=== PATIENT | female | born 1970 | race Caucasian/White ===

== ENCOUNTER 2021-09-13 19:55 | Observation (INO) | payer BC ==
--- OUTSIDE RECORDS SUMMARY | 2021-09-13 19:58 | XMS REPORT | Continuity of Care Document ---
:1970 Author Organization [facility] t Address [address] [place] [address] Care Team Providers Name Role Phone PCP, PATIENT DOES NOT HAVE A Primary Care Physician Unavaila ROLAND Joel Attending Clinician Unavailable Doctor Unassigned, [place] Attending Clinician Unavailable LYLY PHAM Attending Clinician Unavailable Only, Ang Db Test Attending Clinician Unavailable EbLyly Marroquin Attending Clinician CLARICE SILVER Attending Clinician Unavailable Caitlin Brady RN Attending Clinician Unavailable UNKNOWN, ATTENDING Attending Clinician Unavailable Clarice Urias MD Attending Clinician [phone] John Burdick MD Attending Clinician Payers Payer Name Policy Type Policy Number Effective Date Expiration Date S marquis BLUE [employer]ENTIALS [id number] 2019 HMO 00:00:00 OUT OF [facility] [id number] 2020 - O - BS 00:00:00 OPEN ACCESS [id number] HMO/POS/EPO/PPO - [employer]ET[employer] Problems Condition Condition Condition Status Onset Resolution Last Treating Co mments Source Name Details Category Date Date Treatment Clinician Date Acid Acid Disease Active [facility] reflux reflux 7-05 College 00:00: of 00 Medicin e Ovarian Ovarian Disease Active [facility] cyst cyst 6-24 College 00:00: of 00 Medicin e Breast Breast Disease Active [facility] cancer cancer 3-19 College (HCCode) (HCCode) 00:00: of 00 Medicin e Allergies, Adverse Reactions, Alerts Allergy Allergy Status Severity Reaction(s) Onset Inactive Treating Comm ents Source Name Type Date Date Clinician CODEINE DRUG Active Hives Univers INGREDI 3-20 ity of 00:00: [address] Avocado Propensi Active Nausea And [facility] ty to Vomiting 4-20 College adverse 00:00: of reaction 00 Medicin s to e drug Codeine Propensi Active Hives [facility] ty to 7-17 College adverse 00:00: of reaction 00 Medicin s to e drug Codeine Propensi Active Hives. [facility] Phosphat ty to 3-15 College e adverse 00:00: of reaction 00 Medicin s to e drug NO KNOWN Drug Active Univers ALLERGIE Class ity of S [facility] Social History Social Habit Start Date Stop Date Quantity Comments Source History [facility] ge of Alcohol Frequency Medicin e History [facility] ge of Alcohol Std Drinks Medici ne History [facility] ge of Alcohol Binge Medicine History of tobacco Cigarette Smoker [facility] of use Medicine Exposure to Not sure University of SARS-CoV-2 (event) [facility] Alcohol intake 2020-12-22 2020-12-22 .86 /d [facility] Col lege of 00:00:00 00:00:00 Medicine Alcohol Comment 2015-01-24 2015-01-24 Social drinking [facility] of 00:00:00 00:00:00 Medicine Tobacco Comment 2015-01-24 2015-01-24 5 cigarettes a [facility] 00:00:00 00:00:00 day. Medicine Tobacco use and 2012-09-25 2012-09-25 Smokeless tobacco [facility] of exposure 00:00:00 00:00:00 non-user Medicine Cigarettes smoked 2012-09-25 2012-09-25 [facility] current (pack per 00:00:00 00:00:00 Medicin e day) - Reported Sex Assigned At [birth year] [facility] y of 00:00:00 00:00:00 [facility] Smoking Status Start Date Stop Date Source Unknown if ever smoked [facility] Ex-smoker 2012-09-25 00:00:00 2012-09-25 00:00:00 [facility] nahid of Medicine Medications Ordered Filled Start Stop Current Ordering Indication Dosage Frequency Signature Comments Components Source Medication Medication Date Date Medication? Clinician (SIG) Name Name Ascorbic 2020-02 Yes [id number] Take by [facility] Acid -12 mouth. [place] (VITAMIN C 13:21: of OR) 34 Medicin e CALCIUM-VIT 2020-02 Yes [id number] Take by [facility] FRANKS D OR -12 mouth. [place] 13:21: of 34 Medicin e citalopram 2020-02 Yes 20mg Take 20 mg [facility] (CELEXA) 20 12 by mouth [facility] MG tablet 13:21: daily. of 34 Medicin e estradiol 2020-[address] 2 g [facility] (ESTRACE) 02-21 vaginally Colle ge 0.1 MG/GM 00:00: daily. of vaginal 00 Medicin cream e montelukast Yes [facility] (SINGULAIR) 8- [place] 10 MG 00:00: of tablet 00 Medicin e Ascorbic Yes [id number] Take by ylor Acid -07 mouth. [place] (VITAMIN C 13:45: of OR) 34 Medicin e CALCIUM-VIT Yes [id number] Take by [facility] FRANKS D OR -07 mouth. [place] 13:45: of 34 Medicin e citalopram Yes 20mg Take 20 mg [facility] (CELEXA) 20 -07 by mouth [facility] MG tablet 13:45: daily. of 34 Medicin e tamoxifen Yes 10mg Take 1 [facility] (NOLVADEX) 5-07 Tablet by [facility] 10 MG 00:00: mouth of tablet 00 daily. Medicin e tamoxifen Yes 10mg Take 1 [facility] (NOLVADEX) 5-07 Tablet by [facility] 10 MG 00:00: mouth of tablet 00 daily. Medicin e tamoxifen Yes TAKE 1 [facility] (NOLVADEX) 3-03 TABLET BY [facility] 20 MG 00:00: MOUTH of tablet 00 EVERY DAY Medicin e tamoxifen Yes TAKE 1 [facility] (NOLVADEX) 3-03 TABLET BY [facility] 20 MG 00:00: MOUTH of tablet 00 EVERY DAY Medicin e levothyroxi 0 2020- No 137ug Take 137 [facility] ne 1-11 01-11 mcg by [place] (SYNTHROID) 17:42: 00:00 mouth of 137 MCG 48 :00 daily. Medicin tablet e levothyroxi 2020-0 Yes 137ug Take 137 [facility] ne 1-11 mcg by [place] (SYNTHROID) 00:00: mouth of 137 MCG 00 daily. Medicin tablet e levothyroxi 2020-0 Yes 137ug Take 137 [facility] ne 1-11 mcg by [place] (SYNTHROID) 00:00: mouth of 137 MCG 00 daily. Medicin tablet e Ascorbic 2020-0 Yes [id number] Take by [facility] Acid 1-08 mouth. [place] (VITAMIN C 16:10: of OR) 43 Medicin e CALCIUM-VIT 2020-0 Yes [id number] Take by [facility] FRANKS D OR 1-08 mouth. [place] 16:10: of 43 Medicin e citalopram 2020-0 Yes 20mg Take 20 mg [facility] (CELEXA) 20 1-08 by mouth [facility] MG tablet 16:10: daily. of 43 Medicin e levothyroxi 2020-0 Yes 137ug Take 137 [facility] ne 1-05 mcg by [place] (SYNTHROID) 16:44: mouth of 137 MCG 42 daily. Medicin tablet e Ascorbic 2020-0 Yes [id number] Take by [facility] Acid 1-05 mouth. [place] (VITAMIN C 16:44: of OR) 42 Medicin e CALCIUM-VIT 2020-0 Yes [id number] Take by [facility] FRANKS D OR 1-05 mouth. [place] 16:44: of 42 Medicin e citalopram 2020-0 Yes 20mg Take 20 mg [facility] (CELEXA) 20 1-05 by mouth [facility] MG tablet 16:44: daily. of 42 Medicin e Montelukast 2020-0 2020- No Take by [facility] Sodium 1-05 01-05 mouth. [place] (SINGULAIR 16:44: 00:00 of OR) 34 :00 Medicin e linaCLOtide 2020-0 Yes [facility] (LINZESS) 6-30 [place] 145 MCG 00:00: of CAPS 00 Medicin e linaCLOtide 2020-0 Yes [facility] (LINZESS) 6-30 [place] 145 MCG 00:00: of CAPS 00 Medicin e linaCLOtide 2020-0 Yes [facility] (LINZESS) 6-30 [place] 145 MCG 00:00: of CAPS 00 Medicin e linaCLOtide 2020-0 Yes [facility] (LINZESS) 6-30 [place] 145 MCG 00:00: of CAPS 00 Medicin e tamoxifen 2019-0 Yes 20mg Take 1 Tab [facility] (NOLVADEX) 3-23 by mouth Colle ge 20 MG 00:00: daily. of tablet 00 Medicin e tamoxifen 2019-0 Yes 20mg Take 1 Tab [facility] (NOLVADEX) 3-23 by mouth [facility]le [facility] 20 MG 00:00: daily. of tablet 00 Medicin e citalopram 2018-02 Yes 20mg Take 20 mg [facility] (CELEXA) 20 0-25 by mouth [facility] MG tablet 14:51: daily. of 33 Medicin e levothyroxi 2018-02 Yes 137ug Take 137 [facility] ne 0-25 mcg by [place] (SYNTHROID) 14:51: mouth of 137 MCG 33 daily. Medicin tablet e Montelukast 2018-02 Yes Take by [facility] Sodium 0-25 mouth. [place] (SINGULAIR 14:51: of OR) 33 Medicin e Icosapent 2018-02 Yes Take by [facility] Ethyl 0-25 mouth. [place] (VASCEPA) 1 14:51: of G [facility] 33 Medicin e Polyethylen 2018-02 Yes [id number] Take by [facility] e Glycol 0-25 mouth. [place] 3350 14:51: of (MIRALAX 33 Medicin OR) e Ascorbic 2018-02 Yes [id number] Take by ylor Acid 0-25 mouth. [place] (VITAMIN C 14:51: of OR) 33 Medicin e CALCIUM-VIT 2018-02 Yes [id number] Take by [facility] FRANKS D OR 0-25 mouth. [place] 14:51: of 33 Medicin e tamoxifen Yes 20mg Take 1 Tab [facility] (NOLVADEX) 3-08 by mouth Colle ge 20 MG 00:00: daily. of tablet 00 Medicin e clonidine Yes TAKE 1 [facility] (CATAPRES) 9-13 TABLET BY [facility] 0.1 MG 00:00: MOUTH of tablet 00 TWICE A Medicin DAY e azithromyci 2017- 2019- No 250mg Take 1 Tab [facility] n 9-11 10-25 by mouth [place] (ZITHROMAX) 00:00: 00:00 daily. of 250 MG 00 :00 Take 2 Medicin tablet tabs day e 1, 1 tab days 2-5 alendronate 2017-0 2019- No TAKE 1 [facility] (FOSAMAX) 7- 10-25 TABLET BY [facility] 70 MG 00:00: 00:00 MOUTH of tablet 00 :00 EVERY 7 Medicin DAYS e ropinirole Yes [facility] (REQUIP) 2 6-01 College MG tablet 00:00: of 00 Medicin e Elastic 2015-02 Yes 1U 1 Units at [facility] Bandages & 0-03 bedtime. [facility]le [facility] Supports 00:00: of (WRIST 00 Medicin SPLINT/COCK e -UP/RIGHT M) MISC alprazolam 2012-02 Yes .25mg Take 1 Tab [facility] (XANAX) 1-15 by mouth College 0.25 MG 00:00: nightly as of tablet 00 needed. Medicin e alprazolam 2012-02 Yes .25mg Take 1 Tab [facility] (XANAX) 1-15 by mouth College 0.25 MG 00:00: nightly as of tablet 00 needed. Medicin e alprazolam 2012-02 Yes .25mg Take 1 Tab [facility] (XANAX) 1-15 by mouth College 0.25 MG 00:00: nightly as of tablet 00 needed. Medicin e alprazolam 2012-02 Yes .25mg Take 1 Tab [facility] (XANAX) 1-15 by mouth College 0.25 MG 00:00: nightly as of tablet 00 needed. Medicin e alprazolam 2012-02 Yes .25mg Take 1 Tab [facility] (XANAX) 1-15 by mouth College 0.25 MG 00:00: nightly as of tablet 00 needed. Medicin e Immunizations Ordered Immunization Filled Immunization Date Status Commen ts Source Name Name Influenza 2016-01-26 Completed [facility] Intradermal 00:00:00 of Medicine Influenza 2016-01-26 Completed [facility] Intradermal 00:00:00 of Medicine Influenza 2016-01-26 Completed [facility] Intradermal 00:00:00 of Medicine Influenza 2016-01-26 Completed [facility] Intradermal 00:00:00 of Medicine Influenza 2016-01-26 Completed [facility] Intradermal 00:00:00 of Medicine Influenza (whole) 2012-12-23 Completed [facility] 00:00:00 of Medicine Influenza (whole) 2012-12-23 Completed [facility] 00:00:00 of Medicine Influenza (whole) 2012-12-23 Completed [facility] 00:00:00 of Medicine Influenza (whole) 2012-12-23 Completed [facility] 00:00:00 of Medicine Influenza (whole) 2012-12-23 Completed [facility] 00:00:00 of Medicine Vital Signs Vital Name Observation Time Observation Value Comments Source Systolic blood 2020-12-22 19:20:00 128 mm[Hg] [facility] Medicine Diastolic blood 2020-12-22 19:20:00 82 mm[Hg] Health system Medicine Heart rate 2020-12-22 19:20:00 74 /min [facility] ollege of Medicine Body height 2020-12-22 19:20:00 165.1 cm [facility] ollege of [facility] Body weight 2020-12-22 19:20:00 82.101 kg [facility] ollege of [facility] BMI 2020-12-22 19:20:00 30.12 kg/m2 [facility] ollege of Medicine Systolic blood 2020-06-16 18:44:00 121 mm[Hg] [facility] Medicine Diastolic blood 2020-06-16 18:44:00 76 mm[Hg] Health system Medicine Heart rate 2020-06-16 18:44:00 79 /min [facility] ollege of Medicine Body temperature 2020-06-16 18:44:00 36.22 [facility] Body height 2020-06-16 18:44:00 167.6 cm [facility] ollege of [facility] Body weight 2020-06-16 18:44:00 81.285 kg [facility] ollege of Medicine BMI 2020-06-16 18:44:00 28.92 kg/m2 [facility] ollege of Medicine Systolic blood 2020-02-18 16:08:00 116 mm[Hg] [facility] Medicine Diastolic blood 2020-02-18 16:08:00 78 mm[Hg] Health system Medicine Heart rate 2020-02-18 16:08:00 71 /min [facility] ollege of Medicine Respiratory rate 2020-02-18 16:08:00 16 /min [facility] Body height 2020-02-18 16:08:00 167.6 cm [facility] Body weight 2020-02-18 16:08:00 83.008 kg [facility] BMI 2020-02-18 16:08:00 29.54 kg/m2 [facility] Oxygen saturation in 2020-02-18 16:08:00 99 /min [facility] Arterial blood by [facility] Pulse oximetry Systolic blood 2020-02-15 16:47:00 111 mm[Hg] [facility] pressure Medicine Diastolic blood 2020-02-15 16:47:00 74 mm[Hg] Health system Medicine Heart rate 2020-02-15 16:47:00 77 /min [facility] Body temperature 2020-02-15 16:47:00 36.11 [facility] Body height 2020-02-15 16:47:00 167.6 cm [facility] Body weight 2020-02-15 16:47:00 82.555 kg [facility] BMI 2020-02-15 16:47:00 29.38 kg/m2 [facility] Systolic blood 2018-12-04 14:49:00 134 mm[Hg] [facility] pressure Medicine Diastolic blood 2018-12-04 14:49:00 85 mm[Hg] Health system Medicine Heart rate 2018-12-04 14:49:00 64 /min [facility] Body temperature 2018-12-04 14:49:00 37.06 [facility] Body height 2018-12-04 14:49:00 167.6 cm [facility] Body weight 2018-12-04 14:49:00 78.019 kg [facility] BMI 2018-12-04 14:49:00 27.76 kg/m2 [facility] Procedures Procedure Date / Time Performing Clinician Source Performed NO SHOW OR MISSED 2021-04-29 17:07:57 Doctor Unassigned, [facility] APPOINTMENT POLICY [facility] ACKNOWLEDGEMENT HEPATIC FUNCTION PANEL 2020-12-22 13:55:02 [facility] TSH 2020-12-22 13:55:02 [facility] 2020-12-22 13:49:35 [facility] HEPATIC FUNCTION PANEL 2020-12-22 13:44:15 [facility] ASSIGNMENT OF BENEFITS 2020-09-30 19:01:04 [facility] ELECTROCARDIOGRAM COMPLETE 2020-02-18 16:10:00 John Burdick [facility] Plan of Care Planned Activity Planned Date Details Comments Source Future Scheduled 2020-12-22 Screening for malignant [facility] Test 14:34:19 neoplasm of colon of Medicin e (procedure) [code = 351217283] Future Scheduled 2020-12-22 COVID-19 Vaccine (1) [facility] Test 14:34:19 [code = COVID-19 of Medicine Vaccine (1)] Future Scheduled 2020-12-22 TETANUS SHOT (ADULT) [facility] Test 14:34:19 [code = TETANUS SHOT of Medi cine (ADULT)] Future Scheduled 2020-12-22 BMI FOLLOW UP PLAN [facility] Test 14:34:19 [code = BMI FOLLOW UP of Med icine PLAN] Future Scheduled 2020-12-22 Hepatitis C screening [facility] Test 14:34:19 (procedure) [code = of Medic ine 794539479] Future Scheduled 2020-12-22 Human immunodeficiency B [facility] Test 14:34:19 virus screening of Medicine (procedure) [code = 176260915] Future Scheduled 2020-12-22 Screening for malignant [facility] Test 14:34:19 neoplasm of cervix of Medici ne (procedure) [code = 678382843] Future Scheduled 2020-12-22 Screening for malignant [facility] Test 14:34:19 neoplasm of breast of Medici ne (procedure) [code = 537268175] Future Scheduled 2020-12-22 ZOSTER VACCINE (1 of 2) [facility] Test 14:34:19 [code = ZOSTER VACCINE of Me dicine (1 of 2)] Future Scheduled 2020-12-22 FLU VACCINE > 6 MONTHS B [facility] College Test 14:34:19 [code = FLU VACCINE > 6 of M edicine MONTHS] Future Scheduled 2020-12-22 DEXA BONE DENSITY SPINE 1 Occurrences [facility] College Test 13:56:14 AND HIP [code = 75879] starting of Me dicine 12/22/2020 until 12/22/2021 Future Scheduled 2020-12-22 HEPATIC FUNCTION PANEL Ordered: [facility] Test 13:55:02 [code = 52832-7] 12/22/2020 of Medicine Future Scheduled 2020-12-22 TSH [code = 99487-6] Ordered: [facility] Test 13:55:02 12/22/2020 of Medicine Future Scheduled 2020-12-22 DEXA BONE DENSITY SPINE 1 Occurrences [facility] College Test 13:50:41 AND HIP [code = 65615] starting of Me dicine 12/22/2020 until 12/22/2021 Future Scheduled 2020-12-22 TSH [code = 84570-2] Ordered: [facility] [employer] Test 13:49:35 12/22/2020 of Medicine Future Scheduled 2020-12-22 HEPATIC FUNCTION PANEL Ordered: [facility] [employer] Test 13:44:15 [code = 78251-9] 12/22/2020 of Medicine Future Scheduled 2020-06-20 Screening for malignant [facility] College Test 18:03:45 neoplasm of colon of Medicin e (procedure) [code = 706770884] Future Scheduled 2020-06-20 TETANUS SHOT (ADULT) [facility] Test 18:03:45 [code = TETANUS SHOT of Medi cine (ADULT)] Future Scheduled 2020-06-20 COVID-19 Vaccine (1) [facility] Test 18:03:45 [code = COVID-19 of Medicine Vaccine (1)] Future Scheduled 2020-06-20 BMI FOLLOW UP PLAN [employer] [employer] Test 18:03:45 [code = BMI FOLLOW UP of Med icine PLAN] Future Scheduled 2020-06-20 Hepatitis C screening [facility] Test 18:03:45 (procedure) [code = of Medic ine 748736694] Future Scheduled 2020-06-20 Human immunodeficiency [facility] Test 18:03:45 virus screening of Medicine (procedure) [code = 845929638] Future Scheduled 2020-06-20 Screening for malignant [facility] College Test 18:03:45 neoplasm of cervix of Medici ne (procedure) [code = 453514524] Future Scheduled 2020-06-20 Screening for malignant [facility] Test 18:03:45 neoplasm of breast of Medici ne (procedure) [code = 661734514] Future Scheduled 2020-06-20 ZOSTER VACCINE (1 of 2) [facility] Test 18:03:45 [code = ZOSTER VACCINE of Me dicine (1 of 2)] Future Scheduled 2020-06-20 FLU VACCINE > 6 MONTHS B [facility] Test 18:03:45 [code = FLU VACCINE > 6 of M edicine MONTHS] Future Scheduled 2020-06-16 HEPATIC FUNCTION PANEL Ordered: [facility] Test 14:06:09 [code = 77666-5] 06/16/2020 of Medicine Future Scheduled 2020-06-16 DEXA BONE DENSITY SPINE 1 Occurrences [facility] Test 14:06:09 AND HIP [code = 53755] starting of Me dicine 06/16/2020 until 06/16/2021 Diagnostic Test 2020-02-18 ECHO,CARDIOLOGY Expected: [facility] [employer] Pending 00:00:00 ONCOLOGY [code = 02/18/2020, of Medicine 24461-2] Expires: 02/17/2021 Diagnostic Test 2020-02-15 NM BONE SCAN WHOLE BODY Expected: [facility] Pending 00:00:00 [code = 55167-1] 02/15/2020, Medicine Expires: 08/14/2021 Diagnostic Test 2020-02-15 CT ABDOMEN PELVIS W Expected: [facility] Pending 00:00:00 CONTRAST [code = 02/15/2020, Medicine 06008-9] Expires: 09/14/2020 Diagnostic Test 2020-02-15 CT CHEST W CONTRAST Expected: [facility] Pending 00:00:00 [code = 99085-7] 02/15/2020, of Medicine Expires: 09/14/2020 Diagnostic Test 2020-02-15 CBC W/AUTO DIFF WITH Expected: [facility] Pending 00:00:00 PLATELETS [code = 02/15/2020, of Medicin e 78308-0] Expires: 08/14/2020 Diagnostic Test 2020-02-15 COMPREHENSIVE METABOLIC Expected: [facility] Pending 00:00:00 PANEL [code = 26766-5] 02/15/2020, of Me dicine Expires: 08/14/2020 Diagnostic Test 2020-02-15 TSH [code = 02489-5] Expected: [facility] [employer] Pending 00:00:00 02/15/2020, of Medicine Expires: 08/14/2020 Diagnostic Test 2020-02-15 HEMOGLOBIN A1C [code = Expected: [facility] Pending 00:00:00 4548-4] 02/15/2020, of Medicine Expires: 08/14/2020 Future Scheduled ELECTROCARDIOGRAM [facility] Test COMPLETE [code = 23003] of M edicine Future Scheduled COLON CANCER SCREENING: [facility] Test COLONOSCOPY [code = of Medic ine COLON CANCER SCREENING: COLONOSCOPY] Future Scheduled COVID-19 Vaccine [facility] Test Evaluation [code = of Medici ne COVID-19 Vaccine Evaluation] Future Scheduled TETANUS SHOT (ADULT) [facility] [employer] Test [code = TETANUS SHOT of Medi cine (ADULT)] Future Scheduled BMI FOLLOW UP PLAN [employer] Test [code = BMI FOLLOW UP of Med icine PLAN] Future Scheduled HEPATITIS C SCREENING [facility] [employer] Test [code = HEPATITIS C of Medic ine SCREENING] Future Scheduled HIV SCREENING [code = [facility] Test HIV SCREENING] of Medicine Future Scheduled CERVICAL CANCER [facility] C ollege Test SCREENING 3 YEAR FOLLOW of M edicine UP [code = CERVICAL CANCER SCREENING 3 YEAR FOLLOW UP] Future Scheduled MAMMOGRAM ANNUAL [code [facility] [facility] [facility] [employer] Test = MAMMOGRAM ANNUAL] of Medic ine Future Scheduled ZOSTER VACCINE (1 of 2) [facility] Test [code = ZOSTER VACCINE of Me dicine (1 of 2)] Future Scheduled FLU VACCINE > 6 MONTHS [facility] Test [code = FLU VACCINE > 6 of M edicine MONTHS] Future Scheduled HEPATIC FUNCTION PANEL Ordered: [facility] Test [code = 93760-0] 12/04/2018 of Medicine Future Scheduled TETANUS SHOT (ADULT) [facility] Test [code = TETANUS SHOT of Medi cine (ADULT)] Future Scheduled BMI FOLLOW UP PLAN [employer] Test [code = BMI FOLLOW UP of Med icine PLAN] Future Scheduled HIV SCREENING [code = [facility] Test HIV SCREENING] of Medicine Future Scheduled CERVICAL CANCER [facility] C ollege Test SCREENING 3 YEAR FOLLOW of M edicine UP [code = CERVICAL CANCER SCREENING 3 YEAR FOLLOW UP] Future Scheduled MAMMOGRAM ANNUAL [code [facility] Test = MAMMOGRAM ANNUAL] of Medic ine Future Scheduled FLU VACCINE > 6 MONTHS [facility] Test [code = FLU VACCINE > 6 of M edicine MONTHS] Future Scheduled COLON CANCER SCREENING: [facility] Test COLONOSCOPY [code = of Medic ine COLON CANCER SCREENING: COLONOSCOPY] Future Scheduled COVID-19 Vaccine [facility] Test Evaluation [code = of Medici ne COVID-19 Vaccine Evaluation] Future Scheduled TETANUS SHOT (ADULT) [facility] [employer] Test [code = TETANUS SHOT of Medi cine (ADULT)] Future Scheduled BMI FOLLOW UP PLAN [employer] Test [code = BMI FOLLOW UP of Med icine PLAN] Future Scheduled HEPATITIS C SCREENING [facility] [employer] Test [code = HEPATITIS C of Medic ine SCREENING] Future Scheduled HIV SCREENING [code = [facility] [employer] Test HIV SCREENING] of Medicine Future Scheduled CERVICAL CANCER [facility] C ollege Test SCREENING 3 YEAR FOLLOW of M edicine UP [code = CERVICAL CANCER SCREENING 3 YEAR FOLLOW UP] Future Scheduled MAMMOGRAM ANNUAL [code [facility] [facility] [facility] [employer] Test = MAMMOGRAM ANNUAL] of Medic ine Future Scheduled ZOSTER VACCINE (1 of 2) [facility] Test [code = ZOSTER VACCINE of Me dicine (1 of 2)] Future Scheduled FLU VACCINE > 6 MONTHS [facility] [employer] Test [code = FLU VACCINE > 6 of M edicine MONTHS] Future Scheduled DEXA BONE DENSITY AXIAL 1 Occurrences [facility] Test SKELETON [code = 71533] starting of M edicine 12/04/2018 until 06/04/2020 Future Scheduled DEXA BONE DENSITY SPINE 1 Occurrences [facility] Test AND HIP [code = [place] [address]] 12/04/2018 until 12/05/2019 Encounters Start End Encounter Admission Attending Care Care Encounter Source Date/Time Date/Time Type Type Clinicians Facility Department ID 2021-04-29 2021-04-29 Outpatient R UMER [facility] [id number] Univers 12:20:00 13:06:36 ROLAND [facility] 2021-04-29 2021-04-29 Outpatient R [facility] [id number] Univers 12:20:00 12:20:00 [id number] [facility] 2021-04-29 2021-04-29 Orders Doctor COOK [id number] Univers 00:00:00 00:00:00 Only Unassigned, RAFIQ 350.1.13.10 ity of [facility] 4.2.7.2.686 All as [id number] [facility] [address] Branch 2021-02-15 2021-02-15 Outpatient R ANKIT, [facility] [id number] Univers 14:30:00 14:45:43 RANIA ity of [facility] 2021-02-15 2021-02-15 Laboratory Only, Ang Db Test [facility] 1.2.8 40.114 [id number] Univers 14:30:00 14:45:00 Only Lyly Pham [facility] 350.1.13.10 ity of [place] [id number] All as KATIE?BLEA [phone] N[place] tripp [address] MEDICAL OFFICE [facility]ILDING 2021-02-15 2021-02-15 Outpatient R [facility] [id number] Univers 14:30:00 14:30:00 [id number] [facility] 2020-12-22 2020-12-22 Office VENKAT SILVERDarnell [id number] [facility] 12:50:09 15:24:50 Visit CLARICE York 350.1.13.21 Co llege 0.2.7.2.686 of [phone] [facility] 500 e 2020-10-01 2020-10-01 Telephone JOYCE Brady [id number] Univers 00:00:00 00:00:00 Piper R RAFIQ 350.1.13.10 it y of HOSPITAL 4.2.7.2.686 All as [phone] [facility] 019 Branch 2020-09-30 2020-09-30 Outpatient R UNKNOWN, [facility] [id number] Univers 14:15:00 14:15:00 ATTENDING ity [facility] 2020-09-30 2020-09-30 Letter Doctor JOYCE [id number] Univers 00:00:00 00:00:00 (Out) Unassigned, RAFIQ 350.1.13.10 ity of [facility] 4.2.7.2.686 All as [id number] [facility] 0[address] 2020-09-30 2020-09-30 Orders Doctor JOYCE 1.2.840.[id number] [place] [address] 00:00:00 00:00:00 Only Unassigned, RAFIQ 350.1.13.10 ity of [facility] 4.2.7.2.686 All as [id number] [facility] [address] 2020-06-16 2020-06-16 [facility] 1.2.840.114 [id number] [facility] 13:37:36 14:56:07 Visit Jaylen Silver 350.1.13.21 C nahid Dejesusam 0.2.7.2.686 of [phone] [facility]i at[facility] 500 e 2020-02-18 2020-02-18 Office CARINE Burdick 1.2.840.[id number] [place] [address] 10:00:32 12:13:49 Visit John AMBULATOR 350.1.13.21 College Y 0.2.7.2.686 of [id number] Medi atif 375 e 2020-02-15 2020-02-15 [facility] 1.2.840.114 [id number] [facility] 10:12:53 14:04:14 Visit Jaylen Silver 350.1.13.21 C nahid Dejesusam 0.2.7.2.686 of [phone] Medi atif 500 e 2018-12-04 2018-12-04 [facility] 1.2.840.114 [id number] [facility] 09:18:29 09:38:29 Visit Jaylen Silver 350.1.13.21 C nahid Dejesusam 0.2.7.2.686 of [phone] Medi atif 500 e Results This patient has no known results.
[2021-09-13 20:56] LABS: Absolute Lymphocytes (CBC) 3.1 K/uL (0.7-4.9); MCV 89.8 fL (80-100); MPV 8.4 fL (7.6-11.3); RBC Red Blood Cell Count 4.23 M/uL (3.86-4.86)
[2021-09-13 21:02] LABS: Protime INR 0.91
[2021-09-13] MEDS ORDERED: ONDANSETRON 4 MG/2 ML VIAL ONE (21:02)
[2021-09-13] MEDS ORDERED: MORPHINE 4 MG/ML SYR ONE (21:02)
[2021-09-13] MEDS ORDERED: ASPIRIN 81 MG CHEWABLE TABLET ONE (21:02)
[2021-09-13 21:06] LABS: SARS-CoV-2 Antigen Rapid Res Negative (Negative)
--- NOTE | 2021-09-13 21:18 | ER ---
Nurse's Notes [facility] Name: Sakshi Franco Age: 51 yrs Sex: Female : 1970 Arrival Date: 09/13/2021 Time: 19:57 Bed 18 Private MD: Diagnosis: Chest pain, unspecified Presentation: 09/13 20:15 Chief complaint: Substernal chest pain and SOB x 1-2 hours. hb 20:15 Coronavirus screen: At this time, the client does not indicate any symptoms associated hb with coronavirus-19. Ebola Screen: No symptoms or risks identified at this time. Initial Sepsis Screen: Does the patient meet any 2 criteria? No. Patient's initial sepsis screen is negative. Does the patient have a suspected source of infection? No. Patient's initial sepsis screen is negative. Risk Assessment: Do you want to hurt yourself or someone else? Patient reports no desire to harm self or others. Onset of symptoms was September 13, 2021. 20:15 Method Of Arrival: Ambulatory hb 20:15 Acuity: TOBY 3 hb Triage Assessment: 20:28 Pain: Complains of pain in xiphoid area, mid-sternal area, left lateral posterior eh3 chest, right lateral posterior chest, left lateral anterior chest and right lateral anterior chest. 20:50 General: Appears distressed, uncomfortable, Behavior is cooperative, appropriate for eh3 age, restless. Neuro: Level of Consciousness is awake, alert, obeys commands, Oriented to person, place, time, situation. Cardiovascular: Capillary refill < 3 seconds Patient's skin is warm and dry. 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 - Social history:: Smoking status: Patient denies any tobacco usage or history of. Smoking status: Patient reports the use of cigarette tobacco products, smokes one-half pack cigarettes per day, Patient uses alcohol, only on a social basis. - Family history:: not pertinent. - Hospitalizations: : No recent hospitalization is reported. Screenin:28 Abuse screen: Denies threats or abuse. Denies injuries from another. Nutritional eh3 screening: No deficits noted. Tuberculosis screening: No symptoms or risk factors identified. Fall Risk None identified. Assessment: 20:28 Also complains of shortness of breath. Reassessment: No changes from previously eh3 documented assessment. See triage assessment. Pain: Pain does not radiate. Pain began 2 hours ago. 21:40 Reassessment: Patient appears in no apparent distress at this time. Patient and/or hb family updated on plan of care and expected duration. Pain level reassessed. Patient is alert, oriented x 3, equal unlabored respirations, skin warm/dry/pink. 22:31 Reassessment: Patient appears in no apparent distress at this time. Patient and/or hb family updated on plan of care and expected duration. Pain level reassessed. Patient is alert, oriented x 3, equal unlabored respirations, skin warm/dry/pink. 09/14 07:35 Reassessment: Patient is alert, oriented x 3, equal unlabored respirations, skin aa5 warm/dry/pink. Vital Signs: 09/13 20:15 BP 141 / 86; Pulse 64; Resp 18; Pulse Ox 100% on R/A; hb 20:28 BP 142 / 84 LA Sitting (auto/reg); Pulse 65; Resp 18; Temp 97.8(TE); Pulse Ox 100% on eh3 R/A; Weight 82.55 kg; Height 5 ft. 5 in. (165.10 cm); Pain 10/10; 21:20 BP 141 / 95; Pulse 60; Resp 18; Pulse Ox 100% on R/A; Pain 1/10; eh3 22:20 BP 124 / 88; Pulse 65; Resp 16; Pulse Ox 98% on R/A; Pain 1/10; eh3 23:20 BP 112 / 85; Pulse 56; Resp 14; Pulse Ox 99% on R/A; Pain 1/10; eh3 09/14 07:30 BP 102 / 62; Pulse 55; Resp 16 S; Pulse Ox 96% on R/A; aa5 09/13 20:28 Body Mass Index 30.29 (82.55 kg, 165.10 cm) 3 ED Course: 09/13 19:57 Patient arrived in ED. ja2 20:09 Anthony Hebert MD is Attending Physician. rn 20:28 Patient has correct armband on for positive identification. Placed in gown. Bed in low eh3 position. Call light in reach. Side rails up X2. Client placed on continuous cardiac and pulse oximetry monitoring. NIBP monitoring applied. Door closed. Noise minimized. Lights dimmed. 20:28 Inserted saline lock: 20 gauge in right antecubital area, using aseptic technique. 3 Blood collected. 20:28 Patient maintains SpO2 saturation greater than 95% on room air. eh3 20:35 Verena Rodgers, RN is Primary Nurse. hb 20:36 Triage completed. hb 20:36 Arm band placed on. hb 20:49 SARS-COV-2 Antigen Rapid Sent. eh3 20:49 Basic Metabolic Panel Sent. eh3 20:49 CBC with Diff Sent. eh3 20:49 D-Dimer Sent. eh3 20:49 LFT's Sent. eh3 20:49 NT PRO-BNP Sent. eh3 20:49 PT-INR Sent. eh3 20:49 Troponin HS Sent. eh3 20:54 XRAY Chest (1 view) In Process Unspecified. EDMS 21:18 Angel Breen MD is Hospitalizing Provider. rn 22:40 CT Chest For PE Angio In Process Unspecified. EDMS 22:59 No provider procedures requiring assistance completed. 3 09/14 07:35 Patient admitted, IV remains in place. aa5 Administered Medications: 09/13 20:58 Drug: morphine 4 mg Route: IVP; Infused Over: 4 mins; Site: right antecubital; 3 21:22 Follow up: Response: No adverse reaction; Marked relief of symptoms eh3 20:58 Drug: Aspirin Chewable Tablet 324 mg Route: PO; 3 21:22 Follow up: Response: No adverse reaction 3 20:58 Drug: Zofran (Ondansetron) 4 mg Route: IVP; Site: right antecubital; 3 21:22 Follow up: Response: No adverse reaction 3 22:57 Follow up: Response: No adverse reaction eh3 Medication: 22:59 VIS not applicable for this client. eh3 Outcome: 21:18 Decision to Hospitalize by Provider. rn 09/14 07:35 Admitted to [employer] [facility] [employer] accompanied by nurse, via stretcher, with chart. aa5 Condition: stable Instructed on the need for admit, Demonstrated understanding of instructions. 07:38 Patient left the ED. aa5 Signatures: Dispatcher [employer] EDMS Anthony Hebert MD MD rn Calderon, Audri, RN RN aa5 Verena Rodgers RN RN Pradeep, Eileen Pride 3 Corrections: (The following items were deleted from the chart) 09/13 20:37 20:36 Allergies: No Known Allergies; hb 21:16 20:48 Also complains of shortness of breath, 3 3 21:16 20:48 Reassessment: No changes from previously documented assessment. See triage eh3 assessment. eh3 21:16 20:48 General: 3 eh3 21:16 20:48 Pain: Pain does not radiate. Pain began 2 hours ago. 3 3 21:19 21:16 Social history: Smoking status: Patient reports the use of cigarette tobacco 3 products, smokes one-half pack cigarettes per day, Patient uses alcohol, only on a social basis. 3 21:21 20:28 BP 142 / 84; Pulse 65bpm; Resp 18bpm; Pulse Ox 100% RA; eh3 eh3 21:29 20:28 BP 142 / 84 Sitting Auto L Arm Regular; Pulse 65bpm; Resp 18bpm; Pulse Ox 100% eh3 RA; eh3 21:29 21:20 BP 141 / 95; Pulse 60bpm; Resp 18bpm; Pulse Ox 100% RA; 3 eh3 21:39 21:16 Home Meds: citalopram oral; 3 eh3 21:39 21:16 Home Meds: tamoxifen oral; 3 3 21:39 21:16 Home Meds: levothyroxine oral; 3 eh3 21:39 21:16 Home Meds: Estradiol Oral; 3 eh3 21:39 21:16 Home Meds: montelukast oral; 3 3 21:39 21:38 Allergies: Estradiol; eh3 eh3
--- NOTE | 2021-09-13 21:18 | EDPHYS ---
Physician Documentation [facility] Name: Sakshi Franco Age: 51 yrs Sex: Female : 1970 Arrival Date: 09/13/2021 Time: 19:57 Bed 18 Private MD: ED Physician Anthony Hebert HPI: 09/13 20:30 This 51 yrs old Unknown Female presents to ER via Unassigned with complaints of Chest rn Pain, Back Pain, Breathing Difficulty. 20:30 The patient or guardian reports chest pain that is located primarily in the substernal rn area. Onset: 1.5 hour(s) ago. 20:31 The pain radiates to back. Associated signs and symptoms: Pertinent positives: rn shortness of breath, Pertinent negatives: abdominal pain, cough, diaphoresis, lower extremity pain, lower extremity swelling, lightheadedness, near syncope, palpitations, syncope, vomiting. The chest pain is described as a heaviness, a pressure. Duration: The patient or guardian reports a single episode, that is still ongoing. Modifying factors: The symptoms are alleviated by nothing. the symptoms are aggravated by deep breath. Severity of pain: At its worst the pain was moderate in the emergency department the pain is unchanged. The patient has experienced a previous episode. The patient has been recently seen by a physician:. Pt reports 1.5 hours of chest pain, heavy/pressure, radiates to back, worse with deep inspiration, happened at rest. Seen by Dr. Gibson recently and has cardiac cath scheduled for Friday. No fever/cough. No recent illness. No chronic lung problems. No abd pain/vomiting.. 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 - Social history:: Smoking status: Patient denies any tobacco usage or history of. Smoking status: Patient reports the use of cigarette tobacco products, smokes one-half pack cigarettes per day, Patient uses alcohol, only on a social basis. - Family history:: not pertinent. - Hospitalizations: : No recent hospitalization is reported. ROS: 20:31 Constitutional: Negative for fever, chills, and weight loss, Eyes: Negative for injury, rn pain, redness, and discharge, Neck: Negative for injury, pain, and swelling, Cardiovascular: Negative for palpitations, and edema, Respiratory: Negative for cough, wheezing Abdomen/GI: Negative for abdominal pain, nausea, vomiting, diarrhea, and constipation, Back: Negative for injury MS/Extremity: Negative for injury and deformity, Skin: Negative for injury, rash, and discoloration, Neuro: Negative for headache, weakness, numbness, tingling, and seizure. Exam: 20:31 Constitutional: This is a well developed, well nourished patient who is awake, alert, rn appears uncomfortable Head/Face: Normocephalic, atraumatic. Eyes: Periorbital areas with no swelling, redness, or edema. Cardiovascular: Regular rate and rhythm. No pulse deficits. Respiratory: No increased work of breathing, no retractions or nasal flaring. Clear bilateral breath sounds. Abdomen/GI: Soft, non-tender Skin: Warm, dry MS/ Extremity: Pulses equal, no cyanosis. Neurovascular intact. Full, normal range of motion. Equal circumference. Neuro: Awake and alert, GCS 15 21:50 ECG was reviewed by the Attending Physician. rn Vital Signs: 20:15 BP 141 / 86; Pulse 64; Resp 18; Pulse Ox 100% on R/A; hb 20:28 BP 142 / 84 LA Sitting (auto/reg); Pulse 65; Resp 18; Temp 97.8(TE); Pulse Ox 100% on eh3 R/A; Weight 82.55 kg; Height 5 ft. 5 in. (165.10 cm); Pain 10/10; 21:20 BP 141 / 95; Pulse 60; Resp 18; Pulse Ox 100% on R/A; Pain 1/10; eh3 22:20 BP 124 / 88; Pulse 65; Resp 16; Pulse Ox 98% on R/A; Pain 1/10; eh3 23:20 BP 112 / 85; Pulse 56; Resp 14; Pulse Ox 99% on R/A; Pain 10; 3 09/14 07:30 BP 102 / 62; Pulse 55; Resp 16 S; Pulse Ox 96% on R/A; aa5 09/13 20:28 Body Mass Index 30.29 (82.55 kg, 165.10 cm) [facility] MDM: 09/13 20:09 Patient medically screened. rn 21:16 Differential diagnosis: acute myocardial infarction, coronary artery disease chest wall rn pain, costochondritis, pleurisy, pneumothorax, pulmonary embolus. Data reviewed: vital signs, nurses notes, lab test result(s), EKG, radiologic studies, plain films, and as a result, I will admit patient. Counseling: I had a detailed discussion with the patient and/or guardian regarding: the historical points, exam findings, and any diagnostic results supporting the discharge/admit diagnosis, lab results, radiology results, the need for further work-up and treatment in the hospital. Response to treatment: the patient's symptoms have mildly improved after treatment, and as a result, I will admit patient. Admission orders: after a detailed discussion of the patient's condition and case, the admit orders are written by me. ED course: Consulted with Dr. Breen, will admit for cardiology consultation and w/u.. 09/13 20:17 Order name: Basic Metabolic Panel; Complete Time: 21:34 09/13 20:17 Order name: CBC with Diff; Complete Time: 21: 09/13 20:17 Order name: D-Dimer; Complete Time: : 09/13 20:17 Order name: LFT's; Complete Time: 21:34 09/13 20:17 Order name: NT PRO-BNP; Complete Time: 21:34 09/13 20:17 Order name: PT-INR; Complete Time: 21:41 09/13 20:17 Order name: Troponin HS; Complete Time: :34 09/13 20:17 Order name: XRAY Chest (1 view); Complete Time: 21:34 09/13 20:17 Order name: SARS-COV-2 Antigen Rapid; Complete Time: 21:14 09/13 21:42 Order name: CT Chest For PE Angio 09/14 03:13 Order name: Troponin High Sensitivity EDMS 09/13 20:17 Order name: EKG; Complete Time: 20:18 rn 09/13 20:17 Order name: Cardiac monitoring; Complete Time: 20:49 rn 09/13 20:17 Order name: EKG - Nurse/Tech; Complete Time: 21:10 rn 09/13 20:17 Order name: IV Saline Lock; Complete Time: 20:49 rn 09/13 20:17 Order name: Labs collected and sent; Complete Time: 20:49 rn 09/13 20:17 Order name: O2 Per Protocol; Complete Time: 20:49 rn 09/13 20:17 Order name: O2 Sat Monitoring; Complete Time: 20:49 rn EC:50 Rate is 57 beats/min. Rhythm is regular. QRS Bernie is Normal. NV interval is normal. QRS rn interval is normal. QT interval is normal. No Q waves. T waves are Normal. No ST changes noted. Clinical impression: Sinus bradycardia. Interpreted by me. Reviewed by me. Administered Medications: 20:58 Drug: morphine 4 mg Route: IVP; Infused Over: 4 mins; Site: right antecubital; eh3 21:22 Follow up: Response: No adverse reaction; Marked relief of symptoms eh3 20:58 Drug: Aspirin Chewable Tablet 324 mg Route: PO; eh3 21:22 Follow up: Response: No adverse reaction eh3 20:58 Drug: Zofran (Ondansetron) 4 mg Route: IVP; Site: right antecubital; eh3 21:22 Follow up: Response: No adverse reaction eh3 22:57 Follow up: Response: No adverse reaction 3 Disposition Summary: 09/13/21 21:18 Hospitalization Ordered Hospitalization Status: Observation rn Provider: Angel Breen rn Condition: Stable rn Problem: new rn Symptoms: have improved rn Bed/Room Type: Standard rn Location: [facility] ER HOLD(09/14/21 00:10) Room Assignment: ERHOLD-(09/14/21 00:10) cg Diagnosis - Chest pain, unspecified rn Forms: - Medication Reconciliation Form rn - SBAR form rn Signatures: Dispatcher [employer] [facility] Anthony Hebert MD MD rn Garcia, Cindy, RN RN cg Baxter, Heather, RN RN hb Hall, Erin eh3 Corrections: (The following items were deleted from the chart) 20:37 20:36 Allergies: No Known Allergies; hb hb 21:19 21:16 Social history: Smoking status: Patient reports the use of cigarette tobacco [facility] products, smokes one-half pack cigarettes per day, Patient uses alcohol, only on a social basis. [facility] 21:39 21:16 Home Meds: citalopram oral; [email or web address] 21:39 21:16 Home Meds: tamoxifen oral; [email or web address] 21:39 21:16 Home Meds: levothyroxine oral; [email or web address] 21:39 21:16 Home Meds: Estradiol Oral; [email or web address] 21:39 21:16 Home Meds: montelukast oral; [email or web address] 21:39 21:38 Allergies: Estradiol; [place] [id number] 09/14 00:10 09/13 21:18 Telemetry/MedSurg (observation) angela magallanes 09/14 00:09/13 21:18 angela magallanes
[2021-09-13 21:21] LABS: ALT/SGPT 18 U/L (12-78); Albumin 3.4 g/dL (3.4-5.0); Alkaline Phosphatase 47 U/L (45-117); BUN Blood Urea Nitrogen 21 mg/dL (7-18); Bicarbonate 26 mmol/L (21-32); Bilirubin Total 0.1 mg/dL (0.2-1.0); Glomerular Filtration Rate 90 ml/min (=/>90); Glucose Level 124 mg/dL (74-106); NT PRO-BNP 78 pg/mL (<125); Protein, Total 6.6 g/dL (6.4-8.2); Sodium Level 140 mmol/L (136-145); Troponin High Sensitivity 4.1 pg/mL (<58.9)
[2021-09-13 21:24] LABS: AST/SGOT 17 U/L (15-37); Bilirubin Direct < 0.1 mg/dL (0-0.2); Potassium 3.9 mmol/L (3.5-5.1)
--- NOTE | 2021-09-13 21:26 | RAD REPORT ---
EXAM DESCRIPTION: RAD - Chest Single View - 09/13/2021 8:53 pm CLINICAL HISTORY: CHEST PAIN COMPARISON: Two view chest August 2014 TECHNIQUE: AP portable chest image was obtained 09/13/2021 8:53 pm . FINDINGS: Lungs are clear. Increased chest soft tissues creating accentuated density over each lower lung field. Numerous surgical clips are seen overlying the chest. Heart and vasculature are normal. No measurable pleural effusion and no pneumothorax. No acute bony abnormality seen. No acute aortic f indings suspected. IMPRESSION: No acute cardiopulmonary process.
[2021-09-14] MEDS ORDERED: ONDANSETRON 4 MG/2 ML VIAL IV PRN (01:04)
[2021-09-14] MEDS ORDERED: ACETAMINOPHEN 500 MG TAB PO PRN (01:04)
[2021-09-14] MEDS ORDERED: MORPHINE 4 MG/ML SYR IV PRN (01:04)
[2021-09-14 03:10] VITALS: BMI 30.2
[2021-09-14] MEDS ORDERED: NA CHLORIDE 0.9% 500 ML ONE ×2 (07:50→10:01)
[2021-09-14] MEDS ORDERED: MIDAZOLAM HCL 2 MG/2 ML INJ ONE (08:41)
[2021-09-14] MEDS ORDERED: FENTANYL CITR 100 MCG/2 ML ONE (08:41)
[2021-09-14] MEDS ORDERED: NA CHLORIDE 0.9% 0 ML IV ONE (08:42)
[2021-09-14] MEDS ORDERED: ATROPINE SULF 1 MG/10 ML SYR IV ONE (08:42)
--- NOTE | 2021-09-14 10:44 | RAD REPORT ---
EXAM DESCRIPTION: CT Angiography Chest With Intravenous Contrast CLINICAL HISTORY: The patient is 51 years old and is Female; Pulmonary embolism (PE) suspected, posi tive D-dimer TECHNIQUE: Axial computed tomographic angiography images of the chest with intravenous contrast. T his CT exam was performed using one or more of the following dose reduction techniques: automated e xposure control, adjustment of the mA and/or kV according to patient size, and/or use of iterative re construction technique. MIP reconstructed images were created and reviewed. Oblique reformatted images were created and reviewed. DLP: 303 mGy*cm COMPARISON: Chest radiograph of the same day. FINDINGS: PULMONARY ARTERIES: Unremarkable. No pulmonary embolism. AORTA: No acute findings. No thoracic aortic aneurysm. LUNGS: Dependent subsegmental atelectasis and mild apical chronic lung changes. No mass. PLEURAL SPACE: Unremarkable. No significant effusion. No pneumothorax. HEART: Unremarkable. No cardiomegaly. No significant pericardial effusion. No evidence of RV dysfunction. BONES/JOINTS: Mild multilevel degenerative changes of the visualized spine. No acute fracture. No dislocation. SOFT TISSUES: Bilateral breast implants. LYMPH NODES: Unremarkable. No enlarged lymph nodes. LIVER: Hepatic steatosis. IMPRESSION: 1. No pulmonary embolism. No acute intrathoracic abnormity. 2. Dependent subsegmental atelectasis and mild apical chronic lung changes. 3. Hepatic steatosis. Electronically signed by: Clay Boucher DO 09/13/2021 11:16 PM CDT Due to temporary technical issues with the PACS/Fluency reporting system, reports are being signed by the in house radiologists without review as a courtesy to insure prompt reporting. The interpreting radiologist is fully responsible for the content of the report.
[2021-09-14 10:58] VITALS: O2SAT 99
[2021-09-14 12:25] VITALS: BP 98/64; TEMP 97.6
--- NOTE | 2021-09-14 12:42 | CON ---
Date of Consultation: 09/14/2021 Reason For Consultation: Chest pain. History Of Present Illness: Ms. Franco is 51, who was recently seen in the office, had abnormal st ress test. She is set up to have a heart catheterization next week, but she came in with chest pain, substernal chest tightness, back pain. No nausea, vomiting, or diaphoresis. Denied PND, orthopnea, pedal edema, palpitation, or syncope. Blood pressure was 91/66. D-dimer of 701. EKG was nonspecif ic. Chest x-ray is negative. Past Medical History: Includes breast cancer and hypothyroidism. Social History: Positive for tobacco. Allergies: CODEINE. Family History: Positive for heart disease. Review of Systems: Negative. Medications: At home include Synthroid, tamoxifen, and citalopram. Physical Examination: Vital Signs: Blood pressure was 91/66. Sick sinus rhythm. HEENT: Negative. Neck: Supple. No bruit, lymphadenopathy, JVD, or thyromegaly. Chest: Clear to auscultation and percussion. CARDIAC: Revealed a regular rhythm and rate. No murmurs, gallops, or rubs. Abdomen: Benign. Extremities: Revealed no clubbing, cyanosis, or edema. Diagnostic Data: As stated earlier. Impression And Plan: Ms. Franco has had an abnormal stress test. She was scheduled for a catheter ization next week and come back to the hospital with chest pain, shortness of breath for c oronary artery disease. We will plan to proceed with a heart catheterization today to define her cor onary anatomy. The patient understands the risk and the benefits of the procedure and she agreed to proceed. For now, continue her present regimen. I will discuss the case further with Dr. Jamshid méndez. ESME/EDDIE Voice ID: [id number] Report ID: [id number]
--- NOTE | 2021-09-14 15:08 | EKG ---
Test Date: 2021-09-13 Test Time: 21:03:29 Director Of Search Engine Marketing: MEASUREMENT RESULTS: Intervals: Rate: 57 NV: 160 QRSD: 92 QT: 444 QTc: 432 [place]ford: P: 63 NV: 160 QRS: 62 T: 41 INTERPRETIVE STATEMENTS: Sinus bradycardia Possible Left atrial enlargement Borderline ECG No previous ECG available for comparison Electronically Signed On 09-14-21 15:07:47 CDT by Grady Barajas
--- NOTE | 2021-09-14 21:00 | OP ---
Date of Procedure: 09/14/2021 Surgeon: Triston Gibson MD Hardboard Grinder: Ms. Leidy Lockwood. Procedure: Left heart catheterization. Indication: Positive stress test and chest pain. Procedure In Detail: The patient was in the hospital as an inpatient today, admitted to Dr. Breen for chest pain. She was set up to have an outpatient catheterization next week. Has had abnormal st ress test, atypical chest pain. Since she was in the hospital today with chest pain, we decided to d o the heart catheterization. Today, she was brought to the skilled laborer as an inpatient, prepped and drap ed in the routine sterile fashion. Given Versed and fentanyl for sedation. A 6-Pashto sheath was in troduced in the right common femoral artery successfully. Angiography there was normal. Angio-Seal was used to close the case. Chaparrita catheter left and right were used to cannulate the left main and right main respectively. She was found to have perfectly normal coronary artery disease. No athero sclerosis. The patient tolerated the procedure well. Anesthesia: Total conscious sedation was 30 minutes. Complications: None. Blood Loss: 5 cc. Final Diagnosis: Atypical chest pain, positive stress test, normal coronaries. Plan: To continue medical therapy. She can go home today after 2 hours of bedrest. I will see her in the office in 2 weeks. ESME/EDDIE Voice ID: [id number] Report ID: [id number]
--- NOTE | 2021-09-17 08:40 | ECHO ---
HEIGHT: 5 ft 5 in WEIGHT: 182 lb 0 oz DATE OF STUDY: 09/14/[address]: Triston Gibson MD 2-DIMENSIONAL: YES M.MODE: YES DOPPLER: YES COLOR FLOW: YES TDS: YES PORTABLE: YES DEFINITY: BUBBLE STUDY: DIAGNOSIS: CHEST PAIN, SHORTNESS OF BREATH CARDIAC HISTORY: CATHERIZATION: SURGERY: PROSTHETIC VALVE: PACEMAKER: MEASUREMENTS (cm) DIASTOLIC (NORMALS) SYSTOLIC (NORMALS) IVSd 1.0 (0.6-1.2) LA Diam 1.9 (1.9-4.0) LVEF 55% LVIDd 3.3 (3.5-5.7) LVIDs 2.4 (2.0-3.5) %FS 28% LVPWd 1.1 (0.6-1.2) Ao Diam 2.3 (2.0-3.7) 2 DIMENSIONAL ASSESSMENT: RIGHT ATRIUM: NORMAL LEFT ATRIUM: NORMAL RIGHT VENTRICLE: NORMAL LEFT VENTRICLE: NORMAL TRICUSPID VALVE: NORMAL MITRAL VALVE: NORMAL PULMONIC VALVE: NORMAL AORTIC VALVE: NORMAL PERICARDIAL EFFUSION: NONE AORTIC ROOT: NORMAL LEFT VENTRICULAR WALL MOTION: NORMAL DOPPLER/COLOR FLOW: NORMAL COMMENTS: NORMAL LEFT VENTRICULAR EJECTION FRACTION 55-60%. NORMAL WALL MOTION. LIMITED WINDOWS. TECHNOLOGIST: PINO RECINOS
== END 2021-09-14 15:08 | disposition home or self-care (01) ==
LOC: ER 19:55 → ERHOLD 09-14 00:03 → 4TH 09-14 10:52
PROVIDERS: ADMIT Family Medicine; ATTEND Family Medicine
DX: R07.89 Other chest pain (principal); R06.02 Shortness of breath; R94.39 Abnormal result of other cardiovascular function study; E03.9 Hypothyroidism, unspecified; F17.210 Nicotine dependence, cigarettes, uncomplicated; Z20.822 Contact with and (suspected) exposure to COVID-19; Z79.899 Other long term (current) drug therapy; Z79.810 Long term (current) use of selective estrogen receptor modulators (SERMs); Z88.5 Allergy status to narcotic agent; Z85.3 Personal history of malignant neoplasm of breast; Z90.13 Acquired absence of bilateral breasts and nipples; Z90.710 Acquired absence of both cervix and uterus; Z82.49 Family history of ischemic heart disease and other diseases of the circulatory system
CPT/HCPCS: 93005; 93306; 85025; 80048; 36415; 85610; 85379; 80076; 84484 ×3; 83880; 71275; 71045; 93454; 96375; 96374; 99285; 87811; Q9967; C1893; Q9966; C1760; G0269; J2250; J3010; J7040 ×2; J2405; J0583

== ENCOUNTER 2021-09-28 06:39 | Day surgery (SDC) | payer BC ==
[2021-09-28 07:07] LABS: SARS-CoV-2 Antigen Rapid Res Negative (Negative)
[2021-09-28] MEDS ORDERED: CELECOXIB 100 MG CAPSULE ONE (07:22)
[2021-09-28] MEDS ORDERED: ACETAMINOPHEN 500 MG TAB ONE (07:22)
[2021-09-28] MEDS ORDERED: CEFOXITIN SODIUM 1 GM/VIAL ONE (07:22)
[2021-09-28] MEDS ORDERED: Ringers Lactate 1,000 ML IV ONE (07:22)
[2021-09-28] MEDS ORDERED: MIDAZOLAM HCL 2 MG/2 ML INJ ONE ×2 (08:26→08:30)
[2021-09-28] MEDS ORDERED: propofoL 200 MG/20 ML VIAL IV ONE (08:29)
[2021-09-28] MEDS ORDERED: FENTANYL CITR 100 MCG/2 ML ONE (08:30)
[2021-09-28] MEDS ORDERED: ROCURONIUM 50 MG/5 ML VIAL IV ONE (08:30)
[2021-09-28] MEDS ORDERED: LIDOCAINE 1% MPF 5 ML VIAL ONE (08:31)
[2021-09-28] MEDS ORDERED: ONDANSETRON 4 MG/2 ML VIAL ONE (08:32)
[2021-09-28] MEDS ORDERED: dexAMETHasone 10 MG/ML VIAL ONE (08:47)
[2021-09-28] MEDS ORDERED: EPHEDRINE SULF 50 MG/ML VIAL ONE (09:08)
--- NOTE | 2021-09-28 09:22 | P.OP ---
Date of Service: 09/28/21 Preop diagnosis: Symptomatic cholelithiasis Postop diagnosis: Same Procedure performed: Laparoscopic cholecystectomy Surgeon: Alejandro Ferrer MD Tank Setter Helper: TONI Cam Estimated blood loss: Minimal Specimen: Gallbladder Findings: As above Anesthesia: General Complications: None Drains: None Fluids and blood products: Nonapplicable Disposition: Recovery room Operative note: Patient brought to the OR and placed in the supine position. General anesthesia begun. Patient prepped and draped in the usual sterile fashion. Marcaine 0.5% infiltrated locally. Then 15 blade used to make a 1 cm infraumbilical midline incision. Subcutaneous tissue divided. Fascia identified and divided. Peritoneal cavity entered with blunt dissection. #1 Vicryl stay suture placed into the fascia. Then 12 mm trocar placed in the peritoneal cavity under direct vision. Pneumoperitoneum established. And then 3 5 mm trochars placed. 1 trocar placed in the epigastric region just to the right of midline. 2 trochars placed in the right subcostal region. Laparoscopy revealed chronic inflammation of the gallbladder. Fundus of the gallbladder identified and retracted superiorly. Infundibulum identified and retracted inferolateral. Cystic duct and cystic artery clearly identified with blunt dissection. Clips placed and both structures divided. Cautery used to remove the gallbladder from the liver bed. Gallbladder retrieved through the umbilicus via Endo Catch bag. Right upper quadrant examined. No evidence of bleeding or bile leakage appreciated. All trochars removed under direct vision. Stay sutures tied to each other to reapproximate the fascial defect. Subcutaneous wounds irrigated and bleeding controlled with cautery. 3-0 chromic used to approximate subcutaneous tissue and close skin. Sterile dressing applied. Patient awakened and taken to recovery room in good general condition. CC: Dr. Breen's office
[2021-09-28] MEDS ORDERED: NEOSTIGMINE 1 MG/ML -10 ML VIAL ONE (09:25)
[2021-09-28] MEDS ORDERED: GLYCOPYRROLATE 0.2 MG/ML SYR ONE (09:25)
[2021-09-28] MEDS ORDERED: KETOROLAC 30 MG/ML INJ ONE (09:35)
[2021-09-28 10:08] VITALS: O2SAT 98
[2021-09-28 12:09] VITALS: BP 134/75; TEMP 96.6
== END 2021-09-28 10:50 | disposition home or self-care (01) ==
LOC: OR 06:39
PROVIDERS: ATTEND Surgery
PROC: 0FT44ZZ Resection of Gallbladder, Percutaneous Endoscopic Approach (ICD-10-PCS; principal; 2021-09-28 08:45)
DX: K80.10 Calculus of gallbladder with chronic cholecystitis without obstruction (principal); Z20.822 Contact with and (suspected) exposure to COVID-19
CPT/HCPCS: 36415; 82150; 88304; 87811; 47562; J2704; J2710; J2250; J3010; J1100; J7120; J0694; J2405

== ENCOUNTER 2022-08-12 11:01 | Emergency (ER) | payer OTHER ==
--- OUTSIDE RECORDS SUMMARY | 2022-08-12 11:06 | XMS REPORT | Continuity of Care Document ---
:1970 Author Organization [facility] t Address [address] [facility] [address] [place] [id number] Care Team Providers Name Role Phone PCP, PATIENT DOES NOT HAVE A Primary Care Physician Unavaila LEIGH Gomes Attending Clinician Unavailable Nick DINERO, Neelam Garrido Attending Clinician ROLAND OWUSU Attending Clinician Unavailable Doctor Unassigned, [place] Attending Clinician Unavailable EBLYLY SHARP Attending Clinician Unavailable Only, Ang Db Test Attending Clinician Unavailable EbrahiLyly Saunders Attending Clinician Jose Antonio RNCaitlin Attending Clinician Unavailable UNKNOWN, ATTENDING Attending Clinician Unavailable Payers Payer Name Policy Type Policy Number Effective Date Expiration Date Maisha MOLINA [facility] [id number] 2016 ACCESS 00:00:00 BLUE ESSENTIALS O [id number] 2019 00:00:00 Problems This patient has no known problems. Allergies, Adverse Reactions, Alerts Allergy Allergy Status Severity Reaction(s) Onset Inactive Treating Comm ents Source Name Type Date Date Clinician CODEINE DRUG Active Hives Univers INGREDI 3-20 ity of 00:00: [address] NO KNOWN Drug Active Univers ALLERGIE Class ity of [facility] Social History Social Habit Start Date Stop Date Quantity Comments Source Exposure to Not sure [facility] SARS-CoV-2 (event) Medica l Branch Sex Assigned At [birth year] [facility] Medical 00:00:00 00:00:00 Center Smoking Status Start Date Stop Date Source Unknown if ever smoked [facility] Medications This patient has no known medications. Procedures Procedure Date / Time Performing Clinician Source Performed NO SHOW OR MISSED 2021-04-29 17:07:57 Doctor Unassigned, [facility] APPOINTMENT POLICY [place] [facility] ACKNOWLEDGEMENT ASSIGNMENT OF BENEFITS 2020-09-30 19:01:04 Doctor Unassigned, [facility] [place] [facility] Plan of Care Planned Activity Planned Date Details Comments Source Future Scheduled 2022-10-11 Influenza Vaccine (#1) [facility] 00:00:00 [code = Influenza Medical Ce nter Vaccine (#1)] Future Scheduled 2022-02-[address] [facility] 00:00:00 (12+) [code = Medical Center DEPRESSION SCREENING (12+)] Future Scheduled 2019 SHINGLES VACCINES ([address] [facility] 00:00:00 2) [code = SHINGLES Medical Center VACCINES (1 of 2)] Future Scheduled 2014 Lipid panel (procedure) [facility] 00:00:00 [code = 78649492] Medical Ce nter Future Scheduled 1990 Screening for malignant [facility] 00:00:00 neoplasm of cervix Medical C enter (procedure) [code = 836297057] Future Scheduled 1988 DTAP/TDAP/TD VACCINES [facility] 00:00:00 (1 - Tdap) [code = Medical C enter DTAP/TDAP/TD VACCINES (1 - Tdap)] Future Scheduled 1987 HEPATITIS C SCRE[facility]ING [facility] 00:00:00 [code = HEPATITIS C Medical Center SCREENING] Future Scheduled [address] [facility] 00:00:00 Counseling and Medical Cente r Screening (12+) [code = Tobacco Cessation Counseling and Screening (12+)] Future Scheduled 1970 COVID-19 VACCINE (#1) [facility] 00:00:00 [code = COVID-[address] VACCINE (#1)] Future Scheduled 1969 Screening for malignant [facility] 00:00:00 neoplasm of colon Medical Ce nter (procedure) [code = 959189579] Future Scheduled 1969 Screening for malignant [facility] 00:00:00 neoplasm of colon Medical Ce nter (procedure) [code = 169342506] Future Scheduled 1970 Sigmoidoscopy [code = [facility] 00:[facility]:00 Sigmoidoscopy] Medical Rohith r Future Scheduled 1969 Screening for malignant [facility] 00:00:00 neoplasm of breast Medical C enter (procedure) [code = 409312526] Future Scheduled 1969 CT Colonography (combo) [facility] 00:00:00 [code = CT Colonography [facility] (combo)] Future Scheduled 1969 Screening for malignant [facility] Test 00:00:00 neoplasm of colon Medical Ce nter (procedure) [code = 230442103] Future Scheduled 1969 Screening for malignant [facility] Test 00:00:00 neoplasm of colon Medical Ce nter (procedure) [code = 959283780] Encounters Start End Encounter Admission Attending Care Care Encounter Source Date/Time Date/Time Type Type Clinicians Facility Department ID 2022-07-29 2022-07-29 [facility] [id number] [facility] 00:00[facility]00 00[facility]00[facility]00 [facility] 2021-12-28 2021-12-28 Historical [facility] [id number] 00[facility] 00[facility]00 [facility]counter [facility] 2021-12-28 2021-12-28 Orders [facility] [id number] 00:00[facility]00 00:00:[address] [facility] 2021-04-29 2021-04-29 Outpatient Arvind OWUSU [facility] [id number] Univers 12:20:00 13:06:36 ROLAND ity of [facility] 2021-04-29 2021-04-29 Orders Doctor COOK [id number] Univers 00:00:00 00:00:00 Only UnassignedRAFIQ [id number] ity of [place] [facility] [id number] All as [phone] [address] 2021-02-15 2021-02-15 [facility] [id number] Univers 14:30:00 14:45:43 RANIA ity of [facility] 2021-02-15 2021-02-15 Laboratory Only, Ang Db Test [facility] [id number] Univers 14:30:00 14:45:00 Only DevonterebekahLyly key [facility] [id number] ity of [place] [id number] All as KATIE?BLEA [phone] [place] dical [address] MEDICAL OFFICE BUILDING 2020-10-01 2020-10-01 Telephone JOYCE Brady [id number] Univers 00:00:00 00:00:00 Caitlin CONROY [id number] it y of HOSPITAL [id number] All as [phone] [facility] 019 Branch 2020-09-30 2020-09-30 Outpatient R UNKNOWN, [facility] [id number] Univers 14:15:00 14:15:00 ATTENDING ity of [facility] 2020-09-30 2020-09-30 Letter Doctor JOYCE [id number] Univers 00:00:00 00:00:00 (Out) Unassigned, RAFIQ [id number] ity of [place] [facility] [id number] All as [phone] [facility] 044 Branch 2020-09-30 2020-09-30 Orders Doctor JOYCE [id number] Univers 00:00:00 00:00:00 Only Unassigned, RAFIQ [id number] ity of [place] [facility] [id number] All as [phone] [facility] [address] [place] Results This patient has no known results.
[2022-08-12 11:26] LABS: Absolute Lymphocytes (CBC) 1.5 K/uL (0.7-4.9); Hematocrit 41.7 % (36.0-45.0); Lymphocytes % 10.1 % (15.3-44.8); MCV 91.9 fL (80-100); MPV 8.5 fL (7.6-11.3); RBC Red Blood Cell Count 4.54 M/uL (3.86-4.86)
[2022-08-12] MEDS ORDERED: FAMOTIDINE 20 MG/2 ML VIAL IV ONE (11:34)
[2022-08-12] MEDS ORDERED: NA CHLORIDE 0.9% 1,000 ML ONE (11:34)
[2022-08-12 11:44] LABS: Protime INR 0.94
[2022-08-12 11:48] LABS: Bilirubin Total 0.6 mg/dL (0.2-1.0); Potassium 3.6 mEq/L (3.5-5.1); Protein, Total 7.4 g/dL (6.4-8.2)
[2022-08-12 11:53] LABS: Bilirubin Direct 0.2 mg/dL (0-0.2); Bilirubin Indirect, Calculated 0.3 mg/dL (0.2-0.8); Bilirubin Total 0.5 mg/dL (0.2-1.0); Protein, Total 7.5 g/dL (6.4-8.2)
[2022-08-12 12:28] LABS: Blood Morphology Comment NOT SEEN (NOT SEEN); Platelet Estimate ADEQ; White Blood Cell Scan NEUTROPHILIA (OK)
--- NOTE | 2022-08-12 12:28 | RAD REPORT ---
EXAM DESCRIPTION: CT - Abdomen Pelvis W Contrast - 08/12/2022 12:12 pm CLINICAL HISTORY: Abd pain;Lower GI bleed COMPARISON: CT ABD PELVIS W CONTRAST dated 08/10/2012 TECHNIQUE: Thin cut axial CT imaging of the abdomen and pelvis was performed following intravenous a dministration of 100 mL Isovue 300. Multiplanar reformats were generated and reviewed. All CT scans are performed using dose optimization technique as appropriate and may include automated exposure control or mA/KV adjustment according to patient size. FINDINGS: No suspicious findings in the lung bases. The liver, spleen, and pancreas show no suspicious findings. Gallbladder was surgically removed. No i ntra or extrahepatic biliary ductal dilation. Mild prominence of the common bile duct likely relates to postcholecystectomy status. Symmetric renal function is seen with no hydronephrosis or suspicious renal mass. Long segment colonic wall thickening involving the splenic flexure and the remainder of the descendin g colon, with mild mucosal hyperenhancement and adjacent fat stranding. Nondistention limits evaluati on. No adjacent fluid collections or evidence of fistula formation. No free air, free fluid or inflam matory stranding. No hernia, mass or bulky lymphadenopathy. The urinary bladder is without significan t finding. No suspicious bony findings. IMPRESSION: Inflammatory changes of the splenic flexure and descending colon, suggestive of segmenta l infectious or inflammatory colitis. Status post cholecystectomy.
[2022-08-12] MEDS ORDERED: METRONIDAZOLE 500mg IVPB 500 MG/100 ML BAG IV ONE (13:09)
[2022-08-12] MEDS ORDERED: CIPROFLOXACIN 400mg IV 400 MG/200 ML BAG IV ONE (13:09)
--- NOTE | 2022-08-12 15:53 | ER ---
Nurse's Notes [facility] Name: Sakshi Franco Age: 52 yrs Sex: Female : 1970 Arrival Date: 08/12/2022 Time: 11:01 Bed 13 Private MD: Diagnosis: Left sided colitis with rectal bleeding;Lower abdominal pain, unspecified Presentation: 08/12 11:08 Chief complaint: Patient states: vomiting last night , then started having blood in iw stool at 2 am today, states it is zack blood. Coronavirus screen: At this time, the client does not indicate any symptoms associated with coronavirus-19. Ebola Screen: Patient negative for fever greater than or equal to 101.5 degrees Fahrenheit, and additional compatible Ebola Virus Disease symptoms Patient denies exposure to infectious person. Patient denies travel to an Ebola-affected area in the 21 days before illness onset. No symptoms or risks identified at this time. Initial Sepsis Screen: Does the patient meet any 2 criteria? No. Patient's initial sepsis screen is negative. Does the patient have a suspected source of infection? No. Patient's initial sepsis screen is negative. Risk Assessment: Do you want to hurt yourself or someone else? Patient reports no desire to harm self or others. Onset of symptoms was August 12, 2022. 11:08 Method Of Arrival: Ambulatory iw 11:08 Acuity: TOBY 3 iw Triage Assessment: 11:10 General: Appears uncomfortable, Behavior is calm, cooperative, appropriate for age. bp Pain: Complains of pain in abdomen. EENT: No deficits noted. Neuro: No deficits noted. Cardiovascular: No deficits noted. Respiratory: No deficits noted. GI: Abdomen is non-distended, Reports lower abdominal pain, bloody stool. : No signs and/or symptoms were reported regarding the genitourinary system. Derm: No deficits noted. Musculoskeletal: No deficits noted. Historical: - Allergies: 11:09 Codeine; iw - PMHx: 11:09 breast cancer; iw - PSHx: 11:09 section; double mastectomy; hysterectomy; iw - Immunization history:: Adult Immunizations up to date. - Social history:: Smoking status: unknown. Screenin:30 [facility] ED Fall Risk Assessment (Adult) History of falling in the last 3 months, bp including since admission No falls in past 3 months (0 pts). Abuse screen: Denies threats or abuse. Denies injuries from another. Nutritional screening: No deficits noted. Tuberculosis screening: No symptoms or risk factors identified. Assessment: 11:10 General: SEE TRIAGE NOTE. bp 12:36 Reassessment: Patient appears in no apparent distress at this time. Patient is alert, bp oriented x 3, equal unlabored respirations, skin warm/dry/pink. 13:52 Reassessment: Patient appears in no apparent distress at this time. Patient is alert, bp oriented x 3, equal unlabored respirations, skin warm/dry/pink. 14:56 Reassessment: PO AND AMBULATION SUCCESSFUL. bp 16:24 Reassessment: DC HOME WITH FAMILY. bp Vital Signs: 11:15 BP 128 / 86; Pulse 75; Resp 16; Temp 98; Pulse Ox 100% ; bp 13:51 BP 135 / 95; Pulse 74; Resp 16; Pulse Ox 99% ; bp 14:56 BP 120 / 70; Pulse 78; Resp 16; Pulse Ox 99% ; bp 16:24 BP 134 / 88; Pulse 79; Resp 15; Pulse Ox 99% ; bp ED Course: 11:03 Patient arrived in ED. mr 11:05 Maik Price, DARIEN is Primary Nurse. bp 11:06 Chun Shepherd MD is Attending Physician. kdr 11:09 Triage completed. iw 11:09 Arm band placed on. iw 11:17 Inserted saline lock: 20 gauge in right forearm, using aseptic technique. Blood bp collected. 11:30 Patient has correct armband on for positive identification. Bed in low position. Call bp light in reach. Side rails up X2. Adult w/ patient. 12:14 CT Abd/Pelvis - IV Contrast Only In Process Unspecified. EDMS 16:24 No provider procedures requiring assistance completed. IV discontinued, intact, bp bleeding controlled, No redness/swelling at site. Pressure dressing applied. Administered Medications: 11:32 Drug: Famotidine IVP 20 mg Route: IVP; Site: right forearm; bp 16:26 Follow up: Response: No adverse reaction bp 11:32 Drug: NS 0.9% IV 1000 ml Route: IV; Rate: 1 bolus; Site: right forearm; bp 16:26 Follow up: IV Status: Completed infusion; IV Intake: 1000ml bp 13:15 Drug: metroNIDAZOLE IVPB 500 mg Volume: 100 ml; Route: IVPB; Rate: 200 ml/hr; Infused bp Over: 30 mins; Site: right forearm; 16:25 Follow up: IV Status: Completed infusion; IV Intake: 100ml bp 13:26 Drug: Ciprofloxacin IVPB 400 mg Volume: 200 ml; Route: IVPB; Infused Over: 60 mins; bp Site: right forearm; 16:25 Follow up: IV Status: Completed infusion; IV Intake: 200ml bp Medication: 16:24 VIS not applicable for this client. bp Intake: 16:25 IV: 200ml; Total: 200ml. bp 16:25 IV: 100ml; Total: 300ml. bp 16:26 IV: 1000ml; Total: 1300ml. bp Outcome: 15:52 Discharge ordered by . kdr 16:24 Discharged to home ambulatory, with family. bp 16:24 Condition: stable 16:24 Discharge instructions given to patient, Instructed on discharge instructions, follow up and referral plans. medication usage, Demonstrated understanding of instructions, follow-up care, medications, Prescriptions given X 4. 16:26 Patient left the ED. bp Signatures: Dispatcher [employer] EDMS Chun Shepherd MD MD kdr Rivera, Anjelica mr Digna Irvin, RN RN iw Maik Price RN RN bp
--- NOTE | 2022-08-12 15:53 | EDPHYS ---
Physician Documentation [facility] Name: Sakshi Franco Age: 52 yrs Sex: Female : 1970 Arrival Date: 08/12/2022 Time: 11:01 Bed 13 Private MD: ED Physician Chun Shepherd HPI: 08/12 13:18 This 52 yrs old Female presents to ER via Ambulatory with complaints of Bloody Stools. kdr 13:18 Patient states she vomited several times last night and then approximately 2 AM this kdr morning she started having severe abdominal cramping with zack blood in her stool. She had multiple loose stools with blood in it. She is continued to be intermittently nauseated but not vomiting.. Onset: The symptoms/episode began/occurred suddenly, last night. Severity of symptoms: At their worst the symptoms were moderate severe incapacitating today, in the emergency department the symptoms have improved mildly. The patient has not experienced similar symptoms in the past. The patient has not recently seen a physician. Historical: - Allergies: 11:09 Codeine; iw - PMHx: 11:09 breast cancer; iw - PSHx: 11:09 section; double mastectomy; hysterectomy; iw - Immunization history:: Adult Immunizations up to date. - Social history:: Smoking status: unknown. ROS: 13:18 Constitutional: Negative for fever, chills, and weight loss, Eyes: Negative for injury, kdr pain, redness, and discharge, ENT: Negative for injury, pain, and discharge, Neck: Negative for injury, pain, and swelling, Cardiovascular: Negative for chest pain, palpitations, and edema, Respiratory: Negative for shortness of breath, cough, wheezing, and pleuritic chest pain, Back: Negative for injury and pain, : Negative for injury, bleeding, discharge, and swelling, MS/Extremity: Negative for injury and deformity, Skin: Negative for injury, rash, and discoloration, Neuro: Negative for headache, weakness, numbness, tingling, and seizure activity. Psych: Negative for depression, anxiety, suicide ideation, homicidal ideation, and hallucinations, Allergy/Immunology: Negative for hives, rash, and allergies, Endocrine: Negative for neck swelling, polydipsia, polyuria, polyphagia, and marked weight changes, Hematologic/Lymphatic: Negative for swollen nodes, abnormal bleeding, and unusual bruising. 13:18 Abdomen/GI: Positive for abdominal pain, nausea and vomiting, diarrhea, abdominal cramps, rectal bleeding, Negative for constipation, abdominal distension, anorexia, rectal pain, bowel incontinence. Exam: 13:18 Constitutional: This is a well developed, well nourished patient who is awake, alert, kdr and in no acute distress. Head/Face: Normocephalic, atraumatic. Eyes: Pupils equal round and reactive to light, extra-ocular motions intact. Lids and lashes normal. Conjunctiva and sclera are non-icteric and not injected. Cornea within normal limits. Periorbital areas with no swelling, redness, or edema. Neck: Trachea midline, no thyromegaly or masses palpated, and no cervical lymphadenopathy. Supple, full range of motion without nuchal rigidity, or vertebral point tenderness. No Meningismus. Chest/axilla: Normal chest wall appearance and motion. Nontender with no deformity. No lesions are appreciated. Cardiovascular: Regular rate and rhythm with a normal S1 and S2. No gallops, murmurs, or rubs. Normal PMI, no JVD. No pulse deficits. Respiratory: Lungs have equal breath sounds bilaterally, clear to auscultation and percussion. No rales, rhonchi or wheezes noted. No increased work of breathing, no retractions or nasal flaring. Back: No spinal tenderness. No costovertebral tenderness. Full range of motion. Skin: Warm, dry with normal turgor. Normal color with no rashes, no lesions, and no evidence of cellulitis. MS/ Extremity: Pulses equal, no cyanosis. Neurovascular intact. Full, normal range of motion. Neuro: Awake and alert, GCS 15, oriented to person, place, time, and situation. Cranial nerves II-XII grossly intact. Motor strength 5/5 in all extremities. Sensory grossly intact. Cerebellar exam normal. Normal gait. Psych: Awake, alert, with orientation to person, place and time. Behavior, mood, and affect are within normal limits. 13:18 Abdomen/GI: Inspection: abdomen appears normal, Bowel sounds: normal, active, Palpation: soft, mild abdominal tenderness, in the suprapubic area, left upper quadrant and left lower quadrant, Patient had zack blood in her stool. Vital Signs: 11:15 BP 128 / 86; Pulse 75; Resp 16; Temp 98; Pulse Ox 100% ; bp 13:51 BP 135 / 95; Pulse 74; Resp 16; Pulse Ox 99% ; bp 14:56 BP 120 / 70; Pulse 78; Resp 16; Pulse Ox 99% ; bp 16:24 BP 134 / 88; Pulse 79; Resp 15; Pulse Ox 99% ; bp MDM: 15:52 Patient medically screened. kdr 15:59 Data reviewed: vital signs, nurses notes. kdr 08/12 11:07 Order name: CBC with Diff; Complete Time: 12:49 kdr 08/12 11:07 Order name: CMP; Complete Time: 11:55 kdr 08/12 11:07 Order name: Lipase; Complete Time: 11:55 kdr 08/12 11:07 Order name: Type And Screen; Complete Time: 12:49 kdr 08/12 11:23 Order name: PT-INR; Complete Time: 11:55 kdr 08/12 11:24 Order name: LFT's; Complete Time: 11:55 kdr 08/12 12:29 Order name: CBC Smear Scan; Complete Time: 12:49 EDMS 08/12 13:15 Order name: Hemoglobin: repeat 2 hours from first draw; Complete Time: 14:23 kdr 08/12 11:23 Order name: CT Abd/Pelvis - IV Contrast Only; Complete Time: 12:49 kdr 08/12 11:07 Order name: IV Saline Lock; Complete Time: 11:23 kdr 08/12 11:07 Order name: Labs collected and sent; Complete Time: 11:23 kdr 08/12 14:29 Order name: Misc. Order: Provided the patient with crackers and fluids p.o. Also kdr ambulate the patient in the department and record vital signs; Complete Time: 14:36 Administered Medications: 11:32 Drug: Famotidine IVP 20 mg Route: IVP; Site: right forearm; bp 16:26 Follow up: Response: No adverse reaction bp 11:32 Drug: NS 0.9% IV 1000 ml Route: IV; Rate: 1 bolus; Site: right forearm; bp 16:26 Follow up: IV Status: Completed infusion; IV Intake: 1000ml bp 13:15 Drug: metroNIDAZOLE IVPB 500 mg Volume: 100 ml; Route: IVPB; Rate: 200 ml/hr; Infused bp Over: 30 mins; Site: right forearm; 16:25 Follow up: IV Status: Completed infusion; IV Intake: 100ml bp 13:26 Drug: Ciprofloxacin IVPB 400 mg Volume: 200 ml; Route: IVPB; Infused Over: 60 mins; bp Site: right forearm; 16:25 Follow up: IV Status: Completed infusion; IV Intake: 200ml bp Disposition Summary: 08/12/22 15:52 Discharge Ordered Location: Home kdr Problem: new kdr Symptoms: have improved kdr Condition: Stable kdr Diagnosis - Left sided colitis with rectal bleeding kdr - Lower abdominal pain, unspecified kdr Followup: kdr - With: Private Physician - When: 2 - 3 days - Reason: If symptoms return, Further diagnostic work-up, Recheck today's complaints, Continuance of care, Re-evaluation by your physician Discharge Instructions: - Discharge Summary Sheet kdr - Abdominal Pain, Adult, [id number] kdr - Rectal Bleeding, [id number] kdr - Colitis kdr - Probiotics kdr Forms: - Medication Reconciliation Form kdr - Thank You Letter kdr - Antibiotic Education kdr - Prescription Opioid Use kdr - [email or web address] kdr - Work release form em1 Prescriptions: - Flagyl 500 mg Oral Tablet - take 1 tablet by ORAL route every 6 hours for 10 days; 40 tablet; Refills: 0, kdr Product Selection Permitted - Zofran 4 mg Oral Tablet - take 1 tablet by ORAL route every 4-6 hours As needed; 12 tablet; Refills: 0, kdr Product Selection Permitted - Cipro 500 mg Oral Tablet - take 1 tablet by ORAL route every 12 hours for 10 days; 20 tablet; Refills: 0, kdr Product Selection Permitted - Tramadol 50 mg Oral Tablet - take 1 tablet by ORAL route every 8 hours As needed as needed; 16 tablet; kdr Refills: 0, Product Selection Permitted Signatures: Dispatcher [employer] Chun Flores MD MD kdr Digna Irvin RN RN iw Maik Price RN RN bp
[2022-08-12 16:39] VITALS: TEMP 98
[2022-08-12 16:40] VITALS: O2SAT 99
[2022-08-12 16:43] VITALS: BP 134/88
== END 2022-08-12 16:26 | disposition home or self-care (01) ==
LOC: ER 11:01
DX: K51.511 Left sided colitis with rectal bleeding (principal); Z88.5 Allergy status to narcotic agent
CPT/HCPCS: 96365; 96361; 85025; 36415; 86900; 86850; 85610; 86901; 80076; 85018; 83690; 80053; 74177; 96375; 99284; 96366; Q9967; J0744; J7030

== ENCOUNTER 2024-01-24 12:52 | Emergency (ER) | payer OTHER ==
[2024-01-24] MEDS ORDERED: NA CHLORIDE 0.9% 1,000 ML ONE ×2 (14:05→15:47)
[2024-01-24 14:22] LABS: Absolute Basophils 0.1 K/uL (0-0.5); Absolute Eosinophils 0.2 K/uL (0-0.5); Absolute Lymphocytes (CBC) 2.8 K/uL (0.7-4.9); Absolute Monocytes 0.4 K/uL (0.1-1.3); Absolute Neutrophil 4.3 K/uL (1.8-8.0); Basophils % 1.2 % (0-1.3); Eosinophils % 2.9 % (0-4.4); Hematocrit 42.1 % (36.0-45.0); Hemoglobin 13.8 g/dL (12.0-15.0); Lymphocytes % 35.7 % (15.3-44.8); MCH 30.1 pg (27.0-35.0); MCHC 32.8 g/dL (32.0-36.0); MCV 91.8 fL (80-100); MPV 8.9 fL (7.6-11.3); Neutrophils % 55.2 % (41.7-73.7); Platelets 330 thou/uL (152-406); RBC Red Blood Cell Count 4.59 M/uL (3.86-4.86); Red Cell Distribution Width 13.7 % (12.1-15.2)
[2024-01-24 14:38] LABS: Anion Gap 8.7 mEq/L (5.0-15.0); Potassium 3.7 mEq/L (3.5-5.1)
--- NOTE | 2024-01-24 15:06 | RAD REPORT ---
EXAM: CT brain without contrast HISTORY: TRAUMA COMPARISON: None TECHNIQUE: Multiple contiguous axial images were obtained and a CT of the brain without contrast. Sag ittal and coronal reformats were performed. One or more of the following dose reduction techniques were used: Automated exposure control, adjust ment of the mA and/or kV according to patient size, and/or iterative reconstruction. FINDINGS: No evidence of hydrocephalus, intracranial hemorrhage, or extra-axial fluid collection. The brain is normal in morphology. No evidence of midline shift or areas of brain edema. The calvarium is intact. The visualized paranasal sinuses and mastoid air cells are essentially clear . IMPRESSION: No evidence of acute intracranial abnormality. EXAM: CT of the cervical spine without contrast HISTORY: Neck pain, injury TRAUMA TECHNIQUE: Multiple contiguous axial images were obtained in a CT of the cervical spine without contr ast. Sagittal and coronal reformats were performed. FINDINGS: The vertebral bodies demonstrate normal height and alignment. Mild lower cervical spondylos is.. No degenerative changes are present. No prevertebral soft tissue swelling is seen. The posterior facets are well aligned. Normal alignment of the skull base with the cervical spine is seen. The lung apices are unremarkable. IMPRESSION: No evidence of acute osseous abnormality of the cervical spine.
--- NOTE | 2024-01-24 16:18 | ER ---
Nurse's Notes [facility] Name: Sakshi Franco Age: 53 yrs Sex: Female : 1970 Arrival Date: 01/24/2024 Time: 12:52 Bed 8 Private MD: Diagnosis: Concussion with loss of consciousness of unspecified duration Presentation: 01/23 13:02 Chief complaint: Patient states: Tripped in her driveway evening, reports + ll1 LOC. R side of head still hurts, slept all day yesterday. Head feels tingly, some nausea, and her head just doesn't feel right. Coronavirus screen: Client denies travel out of the [place] in the last 14 days. At this time, the client does not indicate any symptoms associated with coronavirus-19. Ebola Screen: Patient denies travel to an Ebola-affected area in the 21 days before illness onset. Initial Sepsis Screen: Does the patient meet any 2 criteria? No. Patient's initial sepsis screen is negative. Does the patient have a suspected source of infection? No. Patient's initial sepsis screen is negative. Risk Assessment: Do you want to hurt yourself or someone else? Patient reports no desire to harm self or others. Onset of symptoms was January 22, 2024. 13:02 Method Of Arrival: Ambulatory ll1 13:02 Acuity: TOBY 3 ll1 Triage Assessment: 13:02 General: Appears uncomfortable, Behavior is calm, cooperative, appropriate for age. ll1 Pain: Complains of pain in head Quality of pain is described as aching. Neuro: Reports headache weakness. GI: Reports nausea. 13:36 General: Appears in no apparent distress. comfortable, Behavior is calm, cooperative, bp appropriate for age. Pain: Complains of pain in head. EENT: No deficits noted. Neuro: Level of Consciousness is awake, alert, obeys commands, Oriented to Appropriate for age. Cardiovascular: Rhythm is sinus rhythm. Respiratory: No deficits noted. GI: No signs and/or symptoms were reported involving the gastrointestinal system. : No signs and/or symptoms were reported regarding the genitourinary system. Derm: No deficits noted. Musculoskeletal: No deficits noted. Historical: - Allergies: 13:01 Codeine; ll1 13:01 avacado; ll1 - PMHx: 13:01 breast cancer; ll1 - PSHx: 13:01 section; double mastectomy; hysterectomy; Cholecystectomy; ll1 - Immunization history:: Adult Immunizations up to date. - Infectious Disease History:: Denies. - Social history:: Smoking status: Patient reports the use of cigarette tobacco products, smokes one-half pack cigarettes per day. Screenin:30 [facility] ED Fall Risk Assessment (Adult) History of falling in the last 3 months, bp including since admission Yes- single mechanical fall (1 pt) Confusion or Disorientation No (0 pts) Intoxicated or Sedated No (0 pts) Impaired Gait No (0 pts) Mobility Assist Device Used No (0 pt) Altered Elimination No (0 pt) Score/Fall Risk Level 0 - 2 = Low Risk Oriented to surroundings. Abuse screen: Denies threats or abuse. Denies injuries from another. Nutritional screening: No deficits noted. Tuberculosis screening: No symptoms or risk factors identified. Assessment: 13:30 General: Appears in no apparent distress. comfortable, Behavior is cooperative, bp appropriate for age, anxious. 16:30 Reassessment: DC ON HOLD FOR IVF COMPLETION. bp Vital Signs: 13:02 BP 135 / 91; Pulse 70; Resp 17; Temp 97.3; Pulse Ox 99% ; Weight 85.28 kg; Height 5 ft. ll1 5 in. ; Pain 6/10; 16:39 BP 120 / 86; Pulse 58; Resp 16; Pulse Ox 100% ; bp 17:23 BP 118 / 82; Pulse 62; Resp 16; Pulse Ox 99% ; ko1 13:02 Body Mass Index 31.28 (85.28 kg, 165.1 cm) ll1 13:02 Pain Scale: Adult ll1 ED Course: 12:55 Patient arrived in ED. mr 13:04 Triage completed. ll1 13:04 Arm band placed on. ll1 13:30 Patient has correct armband on for positive identification. bp 13:36 Maik Price, DARIEN is Primary Nurse. bp 13:48 Barbra Dowd PA-C is PHCP. sb4 13:48 Lei Kent MD is Attending Physician. sb4 14:11 Initial lab(s) drawn, by ma, sent to lab. Inserted saline lock: 20 gauge in right bp antecubital area, using aseptic technique. Blood collected. Flushed with 10 mL NS. 14:56 CT Head C Spine In Process Unspecified. EDMS 17:12 Patient requests rest room assistance. ko1 17:12 Assisted to bathroom. ko1 17:12 No provider procedures requiring assistance completed. ko1 17:23 Provided Education on: meds. ko1 17:23 IV discontinued, intact, bleeding controlled, No redness/swelling at site. Pressure ko1 dressing applied. Administered Medications: 14:11 Drug: NS 0.9% IV 1000 ml IV at 1 bolus Per protocol; to be given as a bolus over 60 bp minutes Route: IV; Rate: 1 bolus; Site: right antecubital; 17:25 Follow up: Response: No adverse reaction; IV Status: Completed infusion; IV Intake: ko1 1000ml 15:21 CANCELLED (Patient ): ns 0.9% 1000 ml IV at 1 bolus Per protocol; to be given as bp a bolus over 60 minutes 16:05 Drug: NS 0.9% IV 1000 ml IV at 1000 ml once; to be given as a bolus over 60 minutes iw Route: IV; Rate: 1000 ml; Site: right antecubital; 17:25 Follow up: Response: No adverse reaction; IV Status: Completed infusion; IV Intake: ko1 1000ml Medication: 13:30 VIS not applicable for this client. bp Intake: 17:25 IV: 1000ml; Total: 1000ml. ko1 17:25 IV: 1000ml; Total: 2000ml. ko1 Outcome: 16:17 Discharge ordered by MD. sb4 17:23 Discharged to home ambulatory, with family, ko1 17:23 Condition: stable 17:23 Discharge instructions given to patient, family, Instructed on discharge instructions, follow up and referral plans. medication usage, Demonstrated understanding of instructions, follow-up care, medications, Prescriptions given X 1, 17:25 Patient left the ED. ko1 Signatures: Dispatcher [employer] EDNJ Anjelica Murillo, Digna Murguia, RN Maik Quiroz RN RN bp Lewis, Lynsay, RN RN ll1 Gia Valentine RN RN Barbra Mckinnon, PA-C PA-C sb4
--- NOTE | 2024-01-24 16:18 | EDPHYS ---
Physician Documentation [facility] Name: Sakshi Franco Age: 53 yrs Sex: Female : 1970 Arrival Date: 01/24/2024 Time: 12:52 Bed 8 Private MD: ED Physician Lei Kent HPI: 01/23 18:27 This 53 yrs old Female presents to ER via Ambulatory with complaints of Fall Injury, sb4 Head Injury With LOC-Adult. 18:27 Details of fall: The patient fell from an upright position, while walking. Onset: The sb4 symptoms/episode began/occurred just prior to arrival. Associated injuries: The patient sustained injury to the head, abrasion, pain. The patient has not experienced similar symptoms in the past. The patient has not recently seen a physician. tripped and fell approx 36 hours ago, + LOC, unsure how long she was out. woke up and went to sleep. states she slept all day yesterday. states today was still experiencing a headache, nausea, and a weird sensation in her body. Historical: - Allergies: 13:01 Codeine; ll1 13:01 avacado; ll1 - PMHx: 13:01 breast cancer; ll1 - PSHx: 13:01 section; double mastectomy; hysterectomy; Cholecystectomy; ll1 - Immunization history:: Adult Immunizations up to date. - Infectious Disease History:: Denies. - Social history:: Smoking status: Patient reports the use of cigarette tobacco products, smokes one-half pack cigarettes per day. ROS: 18:27 Constitutional: Negative for fever, chills, and weight loss, sb4 18:27 Abdomen/GI: Positive for nausea, 18:27 Skin: Positive for abrasion(s), of the right frontal area, 18:27 Neuro: Positive for dizziness, headache, 18:27 All other systems are negative, Exam: 18:27 Constitutional: This is a well developed, well nourished patient who is awake, alert, sb4 and in no acute distress. Eyes: Extra-ocular motions intact. Periorbital areas with no swelling, redness, or edema. ENT: Mucous membranes moist. Cardiovascular: Regular rate and rhythm with a normal S1 and S2. Respiratory: No increased work of breathing, no retractions or nasal flaring. Abdomen/GI: Soft, non-tender, no distension. MS/ Extremity: Pulses equal, no cyanosis. Neurovascular intact. Full, normal range of motion. Neuro: Awake and alert, GCS 15, oriented to person, place, time, and situation. Motor strength 5/5 in all extremities. Sensory grossly intact. 18:27 Head/face: Noted is abrasion(s), that are mild, of the right frontal area, Vital Signs: 13:02 BP 135 / 91; Pulse 70; Resp 17; Temp 97.3; Pulse Ox 99% ; Weight 85.28 kg; Height 5 ft. ll1 5 in. ; Pain 6/10; 16:39 BP 120 / 86; Pulse 58; Resp 16; Pulse Ox 100% ; bp 17:23 BP 118 / 82; Pulse 62; Resp 16; Pulse Ox 99% ; ko1 13:02 Body Mass Index 31.28 (85.28 kg, 165.1 cm) ll1 13:02 Pain Scale: Adult ll1 MDM: 13:48 Medical Screening Exam initiated sb4 18:27 Data reviewed: vital signs, nurses notes, lab test result(s), radiologic studies, and sb4 as a result, I will discharge patient. Counseling: I had a detailed discussion with the patient and/or guardian regarding the historical points, exam findings, and any diagnostic results supporting the discharge/admit diagnosis, lab results, radiology results, the need for outpatient follow up, for definitive care, to return to the emergency department if symptoms worsen or persist or if there are any questions or concerns that arise at home. 12 14:00 Order name: Basic Metabolic Panel; Complete Time: 14:39 sb4 01/23 14:00 Order name: CBC with Diff; Complete Time: 14:23 sb4 01/23 14:00 Order name: CK; Complete Time: 14:39 sb4 12 14:00 Order name: CT Head C Spine; Complete Time: 15:10 sb4 01/23 14:00 Order name: Labs collected and sent; Complete Time: 14:11 sb4 Administered Medications: 14:11 Drug: NS 0.9% IV 1000 ml IV at 1 bolus Per protocol; to be given as a bolus over 60 bp minutes Route: IV; Rate: 1 bolus; Site: right antecubital; 17:25 Follow up: Response: No adverse reaction; IV Status: Completed infusion; IV Intake: ko1 1000ml 15:21 CANCELLED (Patient ): ns 0.9% 1000 ml IV at 1 bolus Per protocol; to be given as bp a bolus over 60 minutes 16:05 Drug: NS 0.9% IV 1000 ml IV at 1000 ml once; to be given as a bolus over 60 minutes iw Route: IV; Rate: 1000 ml; Site: right antecubital; 17:25 Follow up: Response: No adverse reaction; IV Status: Completed infusion; IV Intake: ko1 1000ml Disposition Summary: 01/24/24 16:17 Discharge Ordered Notes: Location: Home sb4 Problem: new sb4 Symptoms: have improved sb4 Condition: Stable sb4 Diagnosis - Concussion with loss of consciousness of unspecified duration sb4 Followup: sb4 - With: Emergency Department - When: As needed - Reason: Trouble breathing, Worsening of condition Discharge Instructions: - Discharge Summary Sheet sb4 - Concussion, Adult, [id number] sb4 Forms: - Work release form sb4 - Patient Portal Instructions sb4 - Leadership Thank You Letter sb4 Prescriptions: - ondansetron 4 mg Oral Tablet,disintegrating - take 1 tablet ORAL route every 4-6 hours As needed; 12 tablet; Refills: 0, sb4 Product Selection Permitted Signatures: Dispatcher [employer] Digna Devries, RN RN iw Maik Price RN RN Ivan Og RN RN ll1 Barbra Dowd PA-C PA-C sb4 Gia Valentine RN ko1 Corrections: (The following items were deleted from the chart) 14:01 14:01 Head C Spine MPR Wo Con+CT.RAD.BRZ ordered. EDMS EDMS 15:21 15:18 NS 0.9% IV 1000 ml IV at 1 bolus Per protocol; to be given as a bolus over 60 bp minutes ordered. sb4
[2024-01-24 17:31] VITALS: TEMP 97.3
[2024-01-24 17:34] VITALS: BP 118/82; O2SAT 99
== END 2024-01-24 17:25 | disposition home or self-care (01) ==
LOC: ER 12:52
DX: S06.0X9A Concussion with loss of consciousness of unspecified duration, initial encounter (principal); F17.210 Nicotine dependence, cigarettes, uncomplicated
CPT/HCPCS: 96361; 85025; 80048; 36415; 82550; 70450; 72125; 96360; 99284; J7030 ×2